=== PATIENT | female | born 1980 | race American Indian/Alaskan Native ===

== ENCOUNTER 2018-05-29 14:29 | Emergency (ER) | payer SELFPAY ==
[2018-05-29 14:56] VITALS: BP 151/83
== END 2018-05-29 19:25 | disposition left against medical advice (07) ==
LOC: ED 14:29
DX: R10.9 Unspecified abdominal pain (principal); Z53.21 Procedure and treatment not carried out due to patient leaving prior to being seen by health care provider

== ENCOUNTER 2018-09-21 12:27 | Emergency (ER) | payer SELFPAY ==
[2018-09-21] MEDS ORDERED: CATAPRES ONE (13:23)
[2018-09-21] MEDS ORDERED: CATAPRES PO ONE (13:24)
[2018-09-21 13:29] LABS: Amorphous Crystals,Urine Few; Bilirubin,Urine NEG (Negative); Blood,Urine NEG (Negative); Color,Urine Yellow (Yellow); Protein,Urine <15 mg/dL mg/dL (Negative); Urobilinogen,Urine < 2.0 mg/dL (<2.0)
[2018-09-21 13:33] LABS: HCG Qualitative,Urine Negative (Negative)
--- NOTE | 2018-09-21 13:36 | Emergency Department Report ---
HPI - General Chief Complaint: Abdominal Pain Time Seen by Provider: 09/21/18 13:20 - HPI HPI: This is a 38-year-old female presents to ED with a history of hypertension poorly controlled with medication. Patient states presents today complaining of lower flank pain 2 days. Patient states she has been having intermittent flank pain for the past 2 days. Patient denies fevers/chills/nausea vomiting chest chest pains or shortness of breath/dysuria/vaginal bleed pelvic pain. ED Past Medical Hx - Past Medical History Hx Hypertension: Yes - Surgical History Past Surgical History?: No - Social History Smoking Status: Current Every Day Smoker - Medications Home Medications: Home Medications Medication Instructions Recorded Confirmed Last Taken Type Ibuprofen [Motrin] 800 mg PO Q8HR #30 tablet 09/21/18 Unknown Rx Lisinopril [Zestril TAB] 20 mg PO QDAY #40 tablet 09/21/18 Unknown Rx Nitrofurantoin [place]/M-Cryst 100 mg PO Q12HR #10 capsule 09/21/18 Unknown Rx [Macrobid CAP] ED Review of Systems ROS: Stated complaint: BACK/ABD PAIN/VOMITING/HEADACHE Other details as noted in HPI Comment: All other systems reviewed and negative Physical Exam - Physical Exam Vital Signs: Vital Signs 09/21/18 09/21/18 12:43 13:25 Temperature 98.5 F Pulse Rate 81 Blood Pressure 198/111 174/114 O2 Sat by Pulse 96 Oximetry Physical Exam: GENERAL: Alert and oriented x3, no apparent distress, Normal Gait, atraumatic. HEAD: Head is normocephalic and a-traumatic. NECK: Supple. Non edematous, No carotid bruits. No lymphadenopathy or thyromegaly. No C-spine tenderness LUNGS: Symetrical with respiration, No wheezing, no rales or crackles, CTAB. HEART: S1, S2 present, regular rate and rhythm without murmur, no rubs, no gallops. Non tender to palpation ABDOMEN: No organomegaly was noted,Positive bowel sounds, soft, and non- distended. . Nontender to palpation on all Quadrants, NO CVA tenderness. BACK: Full range of motion, no spinal tenderness, nontender to palpation. SKIN: Warm and dry, No lesions, No ulceration or induration present. ED Course Vital Signs 09/21/18 09/21/18 12:43 13:25 Temperature 98.5 F Pulse Rate 81 Blood Pressure 198/111 174/114 O2 Sat by Pulse 96 Oximetry ED Medical Decision Making - Medical Decision Making All patient presents with mild cystitis Blood pressure was elevated in the ED, patient has not had a blood pressure medication for couple months. Discussed the patient will refill her lisinopril medication. Urinalysis positive for white count and leukocyte esterase. History patient with 3 day short course of antibiotic therapy Vital signs are normal patient is no acute distress Discussed the patient to follow up with the primary care physician as referred for blood pressure management. Clonidine 0.1 given to reduce blood pressure. Patient was asymptomatic in the ED Critical care attestation.: If time is entered above; I have spent that time in minutes in the direct care of this critically ill patient, excluding procedure time. ED Disposition Clinical Impression: Uncontrolled hypertension, Cystitis Disposition: DC-01 TO HOME OR SELFCARE Is pt being admited?: No Does the pt Need Aspirin: No Condition: Stable Instructions: Urinary Tract Infection in Women (ED), Abdominal Pain (ED), Hypertension (ED), Flank Pain (ED) Additional Instructions: Make sure to follow up with the primary care physician as discussed. Take all your medications as you've been prescribed. If you have any worsening symptoms or develop new symptoms please return to ED immediately. Prescriptions: Ibuprofen [Motrin] 800 mg PO Q8HR #30 tablet Lisinopril [Zestril TAB] 20 mg PO QDAY #40 tablet Nitrofurantoin [place]/M-Cryst [Macrobid CAP] 100 mg PO Q12HR #10 capsule Referrals: MALCOM BARBA MD [Primary Care Provider] - 3-5 Days ENOC FOURNIER MD [Referring] - 3-5 Days [facility] [Outside] - 3-5 Days [facility] [Outside] - 3-5 Days Forms: Work/School Release Form(ED) Time of Disposition: 13:48
[2018-09-21 13:53] VITALS: BP 151/103
== END 2018-09-21 14:01 | disposition home or self-care (01) ==
LOC: ED 12:27
DX: N30.90 Cystitis, unspecified without hematuria (principal); I10 Essential (primary) hypertension; F17.200 Nicotine dependence, unspecified, uncomplicated
CPT/HCPCS: 81001; 81025; 99283

== ENCOUNTER 2018-12-11 18:10 | Emergency (ER) | payer OTHER ==
--- NOTE | 2018-12-11 18:52 | Emergency Department Report ---
Chief Complaint: Headache Stated Complaint: HEADACHE AND SINUSES Time Seen by Provider: 12/11/18 18:50 - HPI History of Present Illness: pt presents with a frontal BAUGH that began two days ago sinus pressure (+) rhinorrhea (+) sneezing (+) allergies no fever has not taken anything for her sx PMHx of HTN takes lisinopril MSE screening note: Focused history and physical exam performed. ED Disposition for MSE Condition: Stable
[2018-12-11 18:53] VITALS: BP 139/85
[2018-12-11] MEDS ORDERED: DECADRON IM ONE (21:13)
[2018-12-11] MEDS ORDERED: TYLENOL PO ONE (21:14)
[2018-12-11] MEDS ORDERED: REGLAN PO ONE (21:14)
[2018-12-11] MEDS ORDERED: BENADRYL PO ONE (21:14)
--- NOTE | 2018-12-11 22:15 | Emergency Department Report ---
ED Headache HPI - General Chief Complaint: Headache Stated Complaint: HEADACHE AND SINUSES Time Seen by Provider: 12/11/18 18:50 - History of Present Illness Initial Comments: pt presents with a frontal BAUGH that began two days ago sinus pressure (+) rhinorrhea (+) sneezing (+) allergies no fever has not taken anything for her sx PMHx of HTN takes lisinopril Timing/Duration: other (3 days ) Quality: moderate Head Injury Location: frontal, other (is reasonable) Associated Symptoms: fever/chills, nasal congestion, nasal drainage (06 with visit with [facility]) Allergies/Adverse Reactions: Allergies No Known Allergies Allergy (Verified 09/21/18 13:23) Home Medications: Ambulatory Orders Ibuprofen [Motrin] 800 mg PO Q8HR #30 tablet 09/21/18 Lisinopril [Zestril TAB] 20 mg PO QDAY #40 tablet 09/21/18 Nitrofurantoin [place]/M-Cryst [Macrobid CAP] 100 mg PO Q12HR #10 capsule 09/21/18 Acetaminophen [Tylenol Extra Strength] 1,000 mg PO QID PRN #30 tablet 12/11/18 Metoclopramide [Reglan] 10 mg PO Q6H PRN #30 tablet 12/11/18 diphenhydrAMINE [Benadryl CAP] 25 mg PO Q6HR PRN #30 capsule 12/11/18 predniSONE [Deltasone] 40 mg PO QDAY 5 Days #10 tab 12/11/18 ED Review of Systems ROS: Stated complaint: HEADACHE AND SINUSES Other details as noted in HPI Constitutional: denies: chills, fever Eyes: denies: eye pain, eye discharge, vision change ENT: ear pain, throat pain (O with probableData available), congestion Respiratory: denies: cough, shortness of breath, wheezing Cardiovascular: denies: chest pain, palpitations Endocrine: no symptoms reported Gastrointestinal: denies: abdominal pain, nausea, diarrhea Genitourinary: denies: urgency, dysuria, discharge Musculoskeletal: as per HPI. denies: back pain, joint swelling, arthralgia Skin: denies: rash, lesions Neurological: denies: headache, weakness, paresthesias Psychiatric: as per HPI. denies: anxiety, depression Hematological/Lymphatic: denies: easy bleeding, easy bruising ED Past Medical Hx - Past Medical History Hx Hypertension: Yes - Social History Smoking Status: Never Smoker Substance Use Type: None - Medications Home Medications: Home Medications Medication Instructions Recorded Confirmed Last Taken Type Ibuprofen [Motrin] 800 mg PO Q8HR #30 tablet 09/21/18 Unknown Rx Lisinopril [Zestril TAB] 20 mg PO QDAY #40 tablet 09/21/18 Unknown Rx Nitrofurantoin [place]/M-Cryst 100 mg PO Q12HR #10 capsule 09/21/18 Unknown Rx [Macrobid CAP] Acetaminophen [Tylenol Extra 1,000 mg PO QID PRN #30 tablet 12/11/18 Unknown Rx Strength] Metoclopramide [Reglan] 10 mg PO Q6H PRN #30 tablet 12/11/18 Unknown Rx diphenhydrAMINE [Benadryl CAP] 25 mg PO Q6HR PRN #30 capsule 12/11/18 Unknown Rx predniSONE [Deltasone] 40 mg PO QDAY 5 Days #10 tab 12/11/18 Unknown Rx ED Physical Exam - General Limitations: No Limitations ( for) General appearance: alert, in no apparent distress - Head Head exam: Present: atraumatic, normocephalic - Eye Eye exam: Present: normal appearance, PERRL, EOMI Pupils: Present: normal accommodation - ENT ENT exam: Present: mucous membranes moist, other (bialt maxillary sinus pain to palpation no swelling no erythema nares boggy clear post nasal drip ) - Expanded ENT Exam Expanded Ear exam: Present: normal external inspection TM/Canal exam: Erythema: Left TM, Canal Tenderness: Left TM, Right TM Mouth exam: Absent: trismus (I) Throat exam: Positive: normal inspection, other (uvula midine no stridor no exudate no lesions ) - Neck Neck exam: Present: normal inspection - Respiratory Respiratory exam: Present: normal lung sounds bilaterally (O). Absent: respiratory distress, wheezes, stridor, chest wall tenderness (ON) - Cardiovascular Cardiovascular Exam: Present: regular rate, normal rhythm, normal heart sounds. Absent: systolic murmur, diastolic murmur, rubs, gallop - GI/Abdominal GI/Abdominal exam: Present: soft, normal bowel sounds. Absent: tenderness, rebound, bruit, hernia - Rectal Rectal exam: Present: deferred (the) - Extremities Exam Extremities exam: Present: normal inspection, full ROM, normal capillary refill. Absent: tenderness, joint swelling, calf tenderness - Back Exam Back exam: Present: normal inspection, full ROM (on the). Absent: tenderness, CVA tenderness (R), CVA tenderness (L) (1), rash noted (.) - Neurological Exam Neurological exam: Present: alert, oriented X3, CN II-XII intact, normal gait, reflexes normal - Psychiatric Psychiatric exam: Present: normal affect (I), normal mood - Skin Skin exam: Present: warm, dry, intact, normal color. Absent: rash ED Course Vital Signs 12/11/18 12/11/18 18:51 21:45 Temperature 98.6 F Pulse Rate 88 Respiratory 18 18 Rate Blood Pressure 139/85 O2 Sat by Pulse 100 Oximetry ED Medical Decision Making - Medical Decision Making pain is improved plan tx for sinusitis , sinus headache, tylenol, benadryl, reglan, prednisone, augmentin follow up with pcp in 2-3 days pt verbalized agreement and understanding of discharge plan. Critical care attestation.: If time is entered above; I have spent that time in minutes in the direct care of this critically ill patient, excluding procedure time. ED Disposition Clinical Impression: Sinusitis Qualifiers: Sinusitis location: maxillary Chronicity: acute Recurrence: non-recurrent Qualified Code(s): J01.00 - Acute maxillary sinusitis, unspecified URI (upper respiratory infection) Qualifiers: URI type: unspecified viral URI Qualified Code(s): J06.9 - Acute upper respiratory infection, unspecified Headache Qualifiers: Headache type: unspecified Headache chronicity pattern: acute headache Intractability: not intractable Qualified Code(s): R51 - Headache Disposition: DC-01 TO HOME OR SELFCARE Is pt being admited?: No Does the pt Need Aspirin: No Condition: Stable Instructions: Sinusitis (ED), Acute Headache (ED) Prescriptions: diphenhydrAMINE [Benadryl CAP] 25 mg PO Q6HR PRN #30 capsule PRN Reason: Headache predniSONE [Deltasone] 40 mg PO QDAY 5 Days #10 tab Metoclopramide [Reglan] 10 mg PO Q6H PRN #30 tablet PRN Reason: Headache Acetaminophen [Tylenol Extra Strength] 1,000 mg PO QID PRN #30 tablet PRN Reason: Headache Referrals: [facility] [Outside] - 3-5 Days Forms: Work/School Release Form(ED) Time of Disposition: 22:36
== END 2018-12-11 22:45 | disposition home or self-care (01) ==
LOC: ED 18:10
DX: J01.00 Acute maxillary sinusitis, unspecified (principal); I10 Essential (primary) hypertension
CPT/HCPCS: 96372; 99282; J1100

== ENCOUNTER 2019-06-10 21:00 | Emergency (ER) | payer SELFPAY ==
[2019-06-10 21:32] VITALS: BP 159/93
--- NOTE | 2019-06-10 21:32 | Event Note ---
ED Screening Note Date of service: 06/10/19 Time: 21:27 ED Screening Note: 38 y o f presents unbilical abd pain x today This initial assessment/diagnostic orders/clinical plan/treatment(s) is/are subject to change based on patients health status, clinical progression and re- assessment by fellow clinical providers in the ED. Further treatment and workup at subsequent clinical providers discretion. Patient/guardian urged not to elope from the ED as their condition may be serious if not clinically assessed and managed. Initial orders include: labs ua acc eval ct?
[2019-06-10 21:50] LABS: Basophils # (Auto) 0.1 K/mm3 (0.0-0.1); Basophils % (Auto) 1.4 % (0.0-1.8); Eosinophils # (Auto) 0.2 K/mm3 (0.0-0.4); Eosinophils % (Auto) 1.9 % (0.0-4.3); Hematocrit 42.8 % (30.3-42.9); Hemoglobin 14.3 gm/dl (10.1-14.3); Lymphocytes # (Auto) 2.9 K/mm3 (1.2-5.4); Mean Corpuscular HGB Conc 33 % (30-34); Mean Corpuscular Volume 95 fl (79-97); Monocytes # (Auto) 0.7 K/mm3 (0.0-0.8); Platelet Count 268 K/mm3 (140-440); Red Cell Distribution Width 14.4 % (13.2-15.2)
[2019-06-10 22:03] LABS: INR 0.95 (0.87-1.13)
[2019-06-10 22:05] LABS: Bilirubin,Urine NEG (Negative); Blood,Urine NEG (Negative); Color,Urine Yellow (Yellow); Mucus,Urine FEW /HPF; Protein,Urine <15 mg/dL mg/dL (Negative); Urobilinogen,Urine < 2.0 mg/dL (<2.0)
[2019-06-10 22:12] LABS: Alanine Aminotransferase 18 units/L (7-56); Albumin 4.3 g/dL (3.9-5); BUN/Creatinine Ratio 11; Blood Urea Nitrogen 8 mg/dL (7-17); Calcium 9.6 mg/dL (8.4-10.2); Hemolysis Index 4
[2019-06-10 22:13] LABS: Bilirubin,Direct < 0.2 mg/dL (0-0.2)
--- NOTE | 2019-06-10 23:02 | Emergency Department Report ---
ED General Adult HPI - General Chief complaint: Abdominal Pain Stated complaint: STOMACH/BACK PAIN Time Seen by Provider: 06/10/19 21:27 Source: patient Mode of arrival: Ambulatory Limitations: No Limitations - History of Present Illness Initial comments: Patient presents to the emergency department a chief complaint of right flank pain that started approximately 5 days ago and is nonradiating. Patient also complains of dysuria. Of note the patient is concerned about some pain at her belly button that has been present for months. Patient denies any nausea, vomiting, vaginal bleeding or discharge. -: Gradual Location: abdomen Radiation: non-radiation Severity scale (0 -10): 2 Consistency: constant Improves with: none Worsens with: none Associated Symptoms: denies other symptoms Treatments Prior to Arrival: none - Related Data Previous Rx's Medication Instructions Recorded Last Taken Type Ibuprofen [Motrin] 800 mg PO Q8HR #30 tablet 09/21/18 Unknown Rx Lisinopril [Zestril TAB] 20 mg PO QDAY #40 tablet 09/21/18 Unknown Rx Nitrofurantoin [place]/M-Cryst 100 mg PO Q12HR #10 capsule 09/21/18 Unknown Rx [Macrobid CAP] Acetaminophen [Tylenol Extra 1,000 mg PO QID PRN #30 tablet 12/11/18 Unknown Rx Strength] Metoclopramide [Reglan] 10 mg PO Q6H PRN #30 tablet 12/11/18 Unknown Rx diphenhydrAMINE [Benadryl CAP] 25 mg PO Q6HR PRN #30 capsule 12/11/18 Unknown Rx predniSONE [Deltasone] 40 mg PO QDAY 5 Days #10 tab 12/11/18 Unknown Rx Naproxen [Naprosyn] 500 mg PO BID PRN #20 tablet 06/10/19 Unknown Rx cephALEXin [Keflex] 500 mg PO Q6HR #28 capsule 06/10/19 Unknown Rx Allergies Allergy/AdvReac Type Severity Reaction Status Date / Time latex Allergy Itching Verified 06/10/19 21:04 ED Review of Systems ROS: Stated complaint: STOMACH/BACK PAIN Other details as noted in HPI Comment: All other systems reviewed and negative Constitutional: denies: chills, fever Eyes: denies: eye pain, eye discharge, vision change ENT: denies: ear pain, throat pain Respiratory: denies: cough, shortness of breath, wheezing Cardiovascular: denies: chest pain, palpitations Endocrine: no symptoms reported Gastrointestinal: abdominal pain. denies: nausea, diarrhea Genitourinary: denies: urgency, dysuria, discharge Musculoskeletal: denies: back pain, joint swelling, arthralgia Skin: denies: rash, lesions Neurological: denies: headache, weakness, paresthesias Psychiatric: denies: anxiety, depression Hematological/Lymphatic: denies: easy bleeding, easy bruising ED Past Medical Hx - Past Medical History Previous Medical History?: No Hx Hypertension: Yes - Surgical History Past Surgical History?: Yes Additional Surgical History: c-sec - Social History Smoking Status: Current Every Day Smoker Substance Use Type: None - Medications Home Medications: Home Medications Medication Instructions Recorded Confirmed Last Taken Type Ibuprofen [Motrin] 800 mg PO Q8HR #30 tablet 09/21/18 Unknown Rx Lisinopril [Zestril TAB] 20 mg PO QDAY #40 tablet 09/21/18 Unknown Rx Nitrofurantoin [place]/M-Cryst 100 mg PO Q12HR #10 capsule 09/21/18 Unknown Rx [Macrobid CAP] Acetaminophen [Tylenol Extra 1,000 mg PO QID PRN #30 tablet 12/11/18 Unknown Rx Strength] Metoclopramide [Reglan] 10 mg PO Q6H PRN #30 tablet 12/11/18 Unknown Rx diphenhydrAMINE [Benadryl CAP] 25 mg PO Q6HR PRN #30 capsule 12/11/18 Unknown Rx predniSONE [Deltasone] 40 mg PO QDAY 5 Days #10 tab 12/11/18 Unknown Rx Naproxen [Naprosyn] 500 mg PO BID PRN #20 tablet 06/10/19 Unknown Rx cephALEXin [Keflex] 500 mg PO Q6HR #28 capsule 06/10/19 Unknown Rx ED Physical Exam - General Limitations: No Limitations General appearance: alert, in no apparent distress - Head Head exam: Present: atraumatic, normocephalic - Eye Eye exam: Present: normal appearance, PERRL, EOMI - ENT ENT exam: Present: mucous membranes moist - Neck Neck exam: Present: normal inspection - Respiratory Respiratory exam: Present: normal lung sounds bilaterally. Absent: respiratory distress - Cardiovascular Cardiovascular Exam: Present: regular rate, normal rhythm. Absent: systolic murmur, diastolic murmur, rubs, gallop - GI/Abdominal GI/Abdominal exam: Present: soft, tenderness (there is a periumbilical hernia the right side of the umbilicus that is easily reducible nonincarcerated), normal bowel sounds. Absent: distended - Extremities Exam Extremities exam: Present: normal inspection - Back Exam Back exam: Present: normal inspection - Neurological Exam Neurological exam: Present: alert, oriented X3 - Psychiatric Psychiatric exam: Present: normal affect, normal mood - Skin Skin exam: Present: warm, dry, intact, normal color. Absent: rash ED Course Vital Signs 06/10/19 21:25 Temperature 98.3 F Pulse Rate 82 Respiratory 18 Rate Blood Pressure 159/93 O2 Sat by Pulse 97 Oximetry ED Medical Decision Making - Lab Data Result diagrams: 06/10/19 21:37 06/10/19 21:37 Lab Results 06/10/19 06/10/19 06/10/19 Range/Units 21:37 21:37 21:37 WBC 9.5 (4.5-11.0) K/mm3 RBC 4.50 (3.65-5.03) M/mm3 Hgb 14.3 (10.1-14.3) gm/dl Hct 42.8 (30.3-42.9) % MCV 95 (79-97) fl MCH 32 (28-32) pg MCHC 33 (30-34) % RDW 14.4 (13.2-15.2) % Plt Count 268 (140-440) K/mm3 Lymph % (Auto) 31.0 (13.4-35.0) % [place] % (Auto) 7.0 (0.0-7.3) % Eos % (Auto) 1.9 (0.0-4.3) % Baso % (Auto) 1.4 (0.0-1.8) % Lymph # 2.9 (1.2-5.4) K/mm3 [place] # 0.7 (0.0-0.8) K/mm3 Eos # 0.2 (0.0-0.4) K/mm3 Baso # 0.1 (0.0-0.1) K/mm3 Seg Neutrophils % 58.7 (40.0-70.0) % Seg Neutrophils # 5.6 (1.8-7.7) K/mm3 PT 12.4 (12.2-14.9) Sec. INR 0.95 (0.87-1.13) Sodium 141 (137-145) mmol/L Potassium 4.3 (3.6-5.0) mmol/L Chloride 99.4 (98-107) mmol/L Carbon Dioxide 29 (22-30) mmol/L Anion Gap 17 mmol/L BUN 8 (7-17) mg/dL Creatinine 0.7 (0.7-1.2) mg/dL Estimated GFR > 60 ml/min BUN/Creatinine Ratio 11 % Glucose 102 H (65-100) mg/dL Calcium 9.6 (8.4-10.2) mg/dL Total Bilirubin 0.40 (0.1-1.2) mg/dL Direct Bilirubin < 0.2 (0-0.2) mg/dL Indirect Bilirubin 0.2 mg/dL AST 16 (5-40) units/L ALT 18 (7-56) units/L Alkaline Phosphatase 48 (35-129) units/L Total Protein 7.2 (6.3-8.2) g/dL Albumin 4.3 (3.9-5) g/dL Albumin/Globulin Ratio 1.5 % Lipase 63 H (13-60) units/L Urine Color (Yellow) Urine Turbidity (Clear) Urine pH (5.0-7.0) Ur Specific [place] (1.003-1.030) Urine Protein (Negative) mg/dL Urine Glucose (UA) (Negative) mg/dL Urine Ketones (Negative) mg/dL Urine Blood (Negative) Urine Nitrite (Negative) Urine Bilirubin (Negative) Urine Urobilinogen (<2.0) mg/dL Ur Leukocyte Esterase (Negative) Urine WBC (Auto) (0.0-6.0) /HPF Urine RBC (Auto) (0.0-6.0) /HPF U Epithel Cells (Auto) (0-13.0) /HPF Urine Mucus /HPF 06/10/19 Range/Units 21:51 WBC (4.5-11.0) K/mm3 RBC (3.65-5.03) M/mm3 Hgb (10.1-14.3) gm/dl Hct (30.3-42.9) % MCV (79-97) fl MCH (28-32) pg MCHC (30-34) % RDW (13.2-15.2) % Plt Count (140-440) K/mm3 Lymph % (Auto) (13.4-35.0) % [place] % (Auto) (0.0-7.3) % Eos % (Auto) (0.0-4.3) % Baso % (Auto) (0.0-1.8) % Lymph # (1.2-5.4) K/mm3 [place] # (0.0-0.8) K/mm3 Eos # (0.0-0.4) K/mm3 Baso # (0.0-0.1) K/mm3 Seg Neutrophils % (40.0-70.0) % Seg Neutrophils # (1.8-7.7) K/mm3 PT (12.2-14.9) Sec. INR (0.87-1.13) Sodium (137-145) mmol/L Potassium (3.6-5.0) mmol/L Chloride (98-107) mmol/L Carbon Dioxide (22-30) mmol/L Anion Gap mmol/L BUN (7-17) mg/dL Creatinine (0.7-1.2) mg/dL Estimated GFR ml/min BUN/Creatinine Ratio % Glucose (65-100) mg/dL Calcium (8.4-10.2) mg/dL Total Bilirubin (0.1-1.2) mg/dL Direct Bilirubin (0-0.2) mg/dL Indirect Bilirubin mg/dL AST (5-40) units/L ALT (7-56) units/L Alkaline Phosphatase (35-129) units/L Total Protein (6.3-8.2) g/dL Albumin (3.9-5) g/dL Albumin/Globulin Ratio % Lipase (13-60) units/L Urine Color Yellow (Yellow) Urine Turbidity Slightly-cloudy (Clear) Urine pH 5.0 (5.0-7.0) Ur Specific [place] 1.018 (1.003-1.030) Urine Protein <15 mg/dl (Negative) mg/dL Urine Glucose (UA) Neg (Negative) mg/dL Urine Ketones Neg (Negative) mg/dL Urine Blood Neg (Negative) Urine Nitrite Neg (Negative) Urine Bilirubin Neg (Negative) Urine Urobilinogen < 2.0 (<2.0) mg/dL Ur Leukocyte Esterase Sm (Negative) Urine WBC (Auto) 20.0 H (0.0-6.0) /HPF Urine RBC (Auto) 3.0 (0.0-6.0) /HPF U Epithel Cells (Auto) 5.0 (0-13.0) /HPF Urine Mucus Few /HPF - Medical Decision Making Discussed results with patient A shunt platelet declined to provide a urinalysis for stating that she's not Critical care attestation.: If time is entered above; I have spent that time in minutes in the direct care of this critically ill patient, excluding procedure time. ED Disposition Clinical Impression: UTI (urinary tract infection), Hernia Disposition: TO HOME OR SELFCARE Is pt being admited?: No Does the pt Need Aspirin: No Condition: Stable Instructions: Urinary Tract Infection in Women (ED), Ventral Hernia (ED) Additional Instructions: return if worse Prescriptions: cephALEXin [Keflex] 500 mg PO Q6HR #28 capsule Referrals: PRIMARY CARE, [Primary Care Provider] - 3-5 Days [facility] [Provider Group] - 3-5 Days [facility] [Provider Group] - 3-5 Days Time of Disposition: 23:01
== END 2019-06-11 07:32 | disposition home or self-care (01) ==
LOC: ED 21:00
DX: N39.0 Urinary tract infection, site not specified (principal); K46.9 Unspecified abdominal hernia without obstruction or gangrene; Z91.041 Radiographic dye allergy status
CPT/HCPCS: 36415; 80048; 80076; 81001; 83690; 85025; 85610; 87086

== ENCOUNTER 2019-07-18 20:57 | Emergency (ER) | payer SELFPAY ==
[2019-07-18 21:04] VITALS: BP 140/80
--- NOTE | 2019-07-18 23:18 | XRay Report ---
LEFT KNEE, 3 VIEWS INDICATION / CLINICAL INFORMATION: MAIN: pain LLE and Left knee pain X 1 week. COMPARISON: None available. FINDINGS: Mild degenerative changes are present in the left knee, predominantly in the medial joint compartment . No fracture, dislocation, or suprapatellar joint effusion is appreciated. IMPRESSION: Mild degenerative change. Signer Name: Lorena Amaya MD Signed: 07/18/2019 11:13 PM Workstation Name: [id number]
[2019-07-19] MEDS ORDERED: traMADol 50 MG TAB PO ONE (00:12)
--- NOTE | 2019-07-19 00:16 | Emergency Department Report ---
ED Lower Extremity HPI - General Chief Complaint: Extremity Injury, Lower Stated Complaint: PAIN IN LT LEG AND KNEE Time Seen by Provider: 07/18/19 23:29 Source: patient Mode of arrival: Ambulatory Limitations: No Limitations - History of Present Illness Initial Comments: Ms Evangelista is a 38 y/o aaf with hx of obesity and chronic knee and leg pain ,who presents for knee pain flare for past week. Pt denies fall injury or trauma. pain is 5/10 aching exacerbated by prolonged weight bearing. Pain is relieved by off loading and rest. Pt states pain preventing completion of work duties as it requires standing and walking for 8 or more hrs 6 days per week. MD Complaint: knee injury Onset/Timin -: week(s), unknown (chronic ) Injury: Knee: Left (left anterior knee pain ) Type of Injury: unknown Place: home Severity: moderate Severity scale (0 -10): 4 Improves With: immobilization, rest Worsens With: weight bearing, palpation Associated Symptoms: ambulatory. denies: snap/pop sensation, swelling, numbness, tingling - Related Data Previous Rx's Medication Instructions Recorded Last Taken Type Ibuprofen [Motrin] 800 mg PO Q8HR #30 tablet 09/21/18 Unknown Rx Lisinopril [Zestril TAB] 20 mg PO QDAY #40 tablet 09/21/18 Unknown Rx Nitrofurantoin [place]/M-Cryst 100 mg PO Q12HR #10 capsule 09/21/18 Unknown Rx [Macrobid CAP] Acetaminophen [Tylenol Extra 1,000 mg PO QID PRN #30 tablet 12/11/18 Unknown Rx Strength] Metoclopramide [Reglan] 10 mg PO Q6H PRN #30 tablet 12/11/18 Unknown Rx diphenhydrAMINE [Benadryl CAP] 25 mg PO Q6HR PRN #30 capsule 12/11/18 Unknown Rx predniSONE [Deltasone] 40 mg PO QDAY 5 Days #10 tab 12/11/18 Unknown Rx Naproxen [Naprosyn] 500 mg PO BID PRN #20 tablet 06/10/19 Unknown Rx cephALEXin [Keflex] 500 mg PO Q6HR #28 capsule 06/10/19 Unknown Rx Menthol/Camphor [[place] Draper 1 applicatio TP QID PRN #1 tube 07/19/19 Unknown Rx Ointment] Naproxen 500 mg PO BID PRN #30 tablet 07/19/19 Unknown Rx Allergies Allergy/AdvReac Type Severity Reaction Status Date / Time latex Allergy Itching Verified 06/10/19 21:04 ED Review of Systems ROS: Stated complaint: PAIN IN LT LEG AND KNEE Other details as noted in HPI Constitutional: denies: chills, fever Eyes: denies: eye pain, eye discharge, vision change ENT: denies: ear pain, throat pain Respiratory: denies: cough, shortness of breath, wheezing Cardiovascular: denies: chest pain, palpitations Endocrine: no symptoms reported Gastrointestinal: denies: abdominal pain, nausea, diarrhea Genitourinary: denies: urgency, dysuria, discharge Musculoskeletal: arthralgia, other (knee pain ). denies: back pain, joint swelling Skin: denies: rash, lesions Neurological: denies: headache, weakness, paresthesias Psychiatric: denies: anxiety, depression Hematological/Lymphatic: denies: easy bleeding, easy bruising ED Past Medical Hx - Past Medical History Hx Hypertension: Yes - Surgical History Additional Surgical History: c-sec - Social History Smoking Status: Never Smoker Substance Use Type: None - Medications Home Medications: Home Medications Medication Instructions Recorded Confirmed Last Taken Type Ibuprofen [Motrin] 800 mg PO Q8HR #30 tablet 09/21/18 Unknown Rx Lisinopril [Zestril TAB] 20 mg PO QDAY #40 tablet 09/21/18 Unknown Rx Nitrofurantoin [place]/M-Cryst 100 mg PO Q12HR #10 capsule 09/21/18 Unknown Rx [Macrobid CAP] Acetaminophen [Tylenol Extra 1,000 mg PO QID PRN #30 tablet 12/11/18 Unknown Rx Strength] Metoclopramide [Reglan] 10 mg PO Q6H PRN #30 tablet 12/11/18 Unknown Rx diphenhydrAMINE [Benadryl CAP] 25 mg PO Q6HR PRN #30 capsule 12/11/18 Unknown Rx predniSONE [Deltasone] 40 mg PO QDAY 5 Days #10 tab 12/11/18 Unknown Rx Naproxen [Naprosyn] 500 mg PO BID PRN #20 tablet 06/10/19 Unknown Rx cephALEXin [Keflex] 500 mg PO Q6HR #28 capsule 06/10/19 Unknown Rx Menthol/Camphor [[place]per 1 applicatio TP QID PRN #1 tube 07/19/19 Unknown Rx Ointment] Naproxen 500 mg PO BID PRN #30 tablet 07/19/19 Unknown Rx ED Physical Exam - General Limitations: No Limitations General appearance: alert, in no apparent distress - Head Head exam: Present: atraumatic, normocephalic - Eye Eye exam: Present: normal appearance - ENT ENT exam: Present: mucous membranes moist - Neck Neck exam: Present: normal inspection - Respiratory Respiratory exam: Present: normal lung sounds bilaterally. Absent: respiratory distress, wheezes, stridor, chest wall tenderness - Cardiovascular Cardiovascular Exam: Present: regular rate, normal rhythm, normal heart sounds. Absent: systolic murmur, diastolic murmur, rubs, gallop - GI/Abdominal GI/Abdominal exam: Present: soft, normal bowel sounds - Rectal Rectal exam: Present: deferred - Extremities Exam Extremities exam: Present: full ROM, tenderness (left anterior medial knee pain to palpation ), normal capillary refill. Absent: pedal edema, joint swelling, calf tenderness - Expanded Lower Extremity Exam Left Knee exam: Present: full ROM, tenderness, pain w/ pronation/supination, full knee extension. Absent: laceration, ecchymosis, deformity, crepidus, dislocation, erythema, effusion, posterior draw sign, pain/laxity with valgus, pain/laxity with varus Lower Leg exam: Present: full ROM. Absent: tenderness Ankle exam: Present: full ROM. Absent: tenderness Foot/Toe exam: Present: full ROM. Absent: tenderness Neuro vascular tendon exam: Absent: pulse deficit, motor deficit, sensory deficit, tendon deficit Gait: Positive: observed and normal - Back Exam Back exam: Present: normal inspection, full ROM. Absent: tenderness, vertebral tenderness, rash noted - Neurological Exam Neurological exam: Present: alert, oriented X3, CN II-XII intact, normal gait, reflexes normal. Absent: motor sensory deficit - Expanded Neurological Exam Expanded Patient oriented to: Present: person, place, time Speech: Present: fluid speech Cranial nerves: EOM's Intact: Normal, Gag Reflex: Normal, Tongue Deviation: Normal, Nystagmus: Normal, Facial Sensation: Normal Motor strength exam: RUE: 5, LUE: 5, RLE: 5, LLE: 5 DTR: knee (R): 2+, knee (L): 2+ Best Eye Response (Celia): (4) open spontaneously Best Motor Response (Celia): (6) obeys commands Best Verbal Response ([place]): (5) oriented [place] Total: 15 - Psychiatric Psychiatric exam: Present: normal affect, normal mood - Skin Skin exam: Present: warm, dry, intact, normal color. Absent: rash ED Course Vital Signs 07/18/19 21:03 Temperature 97.8 F Pulse Rate 76 Respiratory 20 Rate Blood Pressure 140/80 O2 Sat by Pulse 97 Oximetry ED Lower Extremity MDM - Radiology Data Radiology results: report reviewed, image reviewed Ordering Physician: VIJAY CROUCH MD Date of Service: 07/18/19 Procedure(s): XR knee 1-2V LT Accession Number(s): [id number] cc: ED MD MIKO Fluoro Time In Minutes: LEFT KNEE, 3 VIEWS INDICATION / CLINICAL INFORMATION: MAIN: pain LLE and Left knee pain X 1 week. COMPARISON: None available. FINDINGS: Mild degenerative changes are present in the left knee, predominantly in the medial joint compartment. No fracture, dislocation, or suprapatellar joint effusion is appreciated. IMPRESSION: Mild degenerative change. Signer Name: Lorena Amaya MD Signed: 07/18/2019 11:13 PM Workstation Name: [id number] Transcribed By: JR Dictated By: Lorena Amaya MD Electronically Authenticated By: Lorena Amaya MD Signed Date/Time: 07/18/192312 DD/ 11 TD/TT: - Medical Decision Making xray :neg for fracature, noted degenerative changes. Joint is stabel, This is musculoskeletal knee pain, plan: nsaids, analgesic balm, ricer therapy. pt verbalized agreement and understanding of same. Critical care attestation.: If time is entered above; I have spent that time in minutes in the direct care of this critically ill patient, excluding procedure time. ED Disposition Clinical Impression: Knee strain Qualifiers: Encounter type: initial encounter Laterality: left Qualified Code(s): S86.912A - Strain of unspecified muscle(s) and tendon(s) at lower leg level, left leg, initial encounter Disposition: - TO HOME OR SELFCARE Is pt being admited?: No Does the pt Need Aspirin: No Condition: Stable Instructions: Knee Pain (ED), Arthralgia (ED), Knee Exercises (GEN) Prescriptions: Naproxen 500 mg PO BID PRN #30 tablet PRN Reason: pain Menthol/Camphor [[place] Draper Ointment] 1 applicatio TP QID PRN #1 tube PRN Reason: Pain , Severe (7-10) [facility] Care [facility] - 3-5 Days BECKY HUANG MD [Staff Physician] - 3-5 Days Forms: Work/School Release Form(ED) Time of Disposition: 00:26
== END 2019-07-19 00:30 | disposition home or self-care (01) ==
LOC: ED 20:57
DX: S86.912A Strain of unspecified muscle(s) and tendon(s) at lower leg level, left leg, initial encounter (principal); I10 Essential (primary) hypertension; Z79.899 Other long term (current) drug therapy; Z91.040 Latex allergy status; X58.XXXA Exposure to other specified factors, initial encounter; Y93.89 Activity, other specified; Y92.89 Other specified places as the place of occurrence of the external cause; Y99.8 Other external cause status

== ENCOUNTER 2019-08-01 17:54 | Emergency (ER) | payer SELFPAY ==
--- NOTE | 2019-08-01 18:26 | Event Note ---
ED Screening Note Date of service: 08/01/19 Time: 18:24 ED Screening Note: 39 yo female presents with abd pain with vomitting blood streaks x today states dark red streaks of blood first constipation , now diar This initial assessment/diagnostic orders/clinical plan/treatment(s) is/are subject to change based on patients health status, clinical progression and re- assessment by fellow clinical providers in the ED. Further treatment and workup at subsequent clinical providers discretion. Patient/guardian urged not to elope from the ED as their condition may be serious if not clinically assessed and managed. Initial orders include: labs, ua,
[2019-08-01 19:09] LABS: Bacteria,Urine 1+ /HPF (Negative); Bilirubin,Urine NEG (Negative); Blood,Urine SM (Negative); Color,Urine Yellow (Yellow); Mucus,Urine FEW /HPF; Protein,Urine <15 mg/dL mg/dL (Negative); Urobilinogen,Urine < 2.0 mg/dL (<2.0)
[2019-08-01 19:27] LABS: Hematocrit 40.2 % (30.3-42.9); Hemoglobin 13.5 gm/dl (10.1-14.3); Mean Corpuscular HGB Conc 34 % (30-34); Mean Corpuscular Volume 96 fl (79-97); Platelet Count 291 K/mm3 (140-440); Red Blood Count 4.21 M/mm3 (3.65-5.03)
[2019-08-01 19:40] LABS: BUN/Creatinine Ratio 14; Blood Urea Nitrogen 10 mg/dL (7-17)
[2019-08-01 19:41] LABS: Alanine Aminotransferase 19 units/L (7-56); Albumin 4.1 g/dL (3.9-5); Calcium 9.1 mg/dL (8.4-10.2); Hemolysis Index 16
[2019-08-01 20:06] LABS: Basophils % (Manual) 0 % (0.0-1.8); Total Cells Counted 100
[2019-08-01 20:08] LABS: Platelet Estimate Consistent w Auto; Target Cells Few
[2019-08-01] MEDS ORDERED: HYDROmorphone 1 MG/1 ML INJ IV ONE (23:02)
[2019-08-01] MEDS ORDERED: ONDANSETRON 4 MG/2 ML INJ IV ONE (23:02)
[2019-08-01] MEDS ORDERED: PANTOPRAZOLE 40 MG INJ IV ONE (23:02)
[2019-08-01] MEDS ORDERED: SODIUM CHLORIDE 0.9% 500 ML 500 ML IV ONE (23:04)
[2019-08-01] MEDS ORDERED: SODIUM CHLORIDE 0.9% 1000 ML 1,000 ML ONE (23:16)
--- NOTE | 2019-08-01 23:31 | Emergency Department Report ---
ED Abdominal Pain HPI - General Chief Complaint: Medical Clearance Stated Complaint: COUGHING UP BLOOD/KNOT ON STOMACH Time Seen by Provider: 08/01/19 22:54 Source: patient Mode of arrival: Ambulatory Limitations: No Limitations - History of Present Illness Initial Comments: 39-year-old female with a past medical history obesity, hypertension, previous and tubal ligation presents to the hospital complaining of vomiting blood today. Patient had 2 episodes of vomiting. Both were blood-streaked. No vomiting since noon. Nausea improved. She has had a "knot" to her abd at the right saira umbilical area for several weeks that has progressively gotten bigger. This area is tender to palpation and rated 8/10 in intensity. Abdominal pain is intermittent and feels like a bad period cramps. Patient denies melena, hematochezia, fever, or diarrhea. Pt ran out of her BP meds 2 days ago and presents hypertensive. PMD None - Related Data Previous Rx's Medication Instructions Recorded Last Taken Type Ibuprofen [Motrin] 800 mg PO Q8HR #30 tablet 09/21/18 Unknown Rx Lisinopril [Zestril TAB] 20 mg PO QDAY #40 tablet 09/21/18 Unknown Rx Acetaminophen [Tylenol Extra 1,000 mg PO QID PRN #30 tablet 12/11/18 Unknown Rx Strength] Metoclopramide [Reglan] 10 mg PO Q6H PRN #30 tablet 12/11/18 Unknown Rx diphenhydrAMINE [Benadryl CAP] 25 mg PO Q6HR PRN #30 capsule 12/11/18 Unknown Rx predniSONE [Deltasone] 40 mg PO QDAY 5 Days #10 tab 12/11/18 Unknown Rx Naproxen [Naprosyn] 500 mg PO BID PRN #20 tablet 06/10/19 Unknown Rx cephALEXin [Keflex] 500 mg PO Q6HR #28 capsule 06/10/19 Unknown Rx Menthol/Camphor [[place] 1 applicatio TP QID PRN #1 tube 07/19/19 Unknown Rx Ointment] Naproxen 500 mg PO BID PRN #30 tablet 07/19/19 Unknown Rx Docusate Sodium [Colace] 100 mg PO BID PRN #20 capsule 08/02/19 Unknown Rx Nitrofurantoin [place]/M-Cryst 100 mg PO Q12HR #10 capsule 08/02/19 Unknown Rx [Macrobid CAP] Ondansetron [Zofran Odt] 4 mg PO Q8HR PRN #20 tab.rapdis 08/02/19 Unknown Rx Pantoprazole [Protonix TAB] 40 mg PO QDAY #20 tablet. 08/02/19 Unknown Rx traMADoL [Ultram 50 MG tab] 50 mg PO Q6HR PRN #20 tablet 08/02/19 Unknown Rx Allergies Allergy/AdvReac Type Severity Reaction Status Date / Time latex Allergy Itching Verified 08/01/19 17:55 ED Review of Systems ROS: Stated complaint: COUGHING UP BLOOD/KNOT ON STOMACH Other details as noted in HPI Comment: All other systems reviewed and negative ED Past Medical Hx - Past Medical History Hx Hypertension: Yes - Surgical History Additional Surgical History: c-sec - Social History Smoking Status: Never Smoker Substance Use Type: None - Medications Home Medications: Home Medications Medication Instructions Recorded Confirmed Last Taken Type Ibuprofen [Motrin] 800 mg PO Q8HR #30 tablet 09/21/18 Unknown Rx Lisinopril [Zestril TAB] 20 mg PO QDAY #40 tablet 09/21/18 Unknown Rx Acetaminophen [Tylenol Extra 1,000 mg PO QID PRN #30 tablet 12/11/18 Unknown Rx Strength] Metoclopramide [Reglan] 10 mg PO Q6H PRN #30 tablet 12/11/18 Unknown Rx diphenhydrAMINE [Benadryl CAP] 25 mg PO Q6HR PRN #30 capsule 12/11/18 Unknown Rx predniSONE [Deltasone] 40 mg PO QDAY 5 Days #10 tab 12/11/18 Unknown Rx Naproxen [Naprosyn] 500 mg PO BID PRN #20 tablet 06/10/19 Unknown Rx cephALEXin [Keflex] 500 mg PO Q6HR #28 capsule 06/10/19 Unknown Rx Menthol/Camphor [[place] 1 applicatio TP QID PRN #1 tube 07/19/19 Unknown Rx Ointment] Naproxen 500 mg PO BID PRN #30 tablet 07/19/19 Unknown Rx Docusate Sodium [Colace] 100 mg PO BID PRN #20 capsule 08/02/19 Unknown Rx Nitrofurantoin [place]/M-Cryst 100 mg PO Q12HR #10 capsule 08/02/19 Unknown Rx [Macrobid CAP] Ondansetron [Zofran Odt] 4 mg PO Q8HR PRN #20 tab.mikdis 08/02/19 Unknown Rx Pantoprazole [Protonix TAB] 40 mg PO QDAY #20 tablet. 08/02/19 Unknown Rx traMADoL [Ultram 50 MG tab] 50 mg PO Q6HR PRN #20 tablet 08/02/19 Unknown Rx ED Physical Exam - General Limitations: No Limitations - Other Other exam information: General: No acute distress Head: Atraumatic Eyes: normal appearance ENT: Moist mucous membranes Neck: Normal appearance, no midline tenderness Chest: Clear to auscultation bilaterally CV: Regular rate and rhythm Abdomen: Soft, normal bowel sounds, mild swelling to the right periumbilical hernia possible hernia tender to palpation, nondistended, no rebound or guarding Rectal: guaic negative brown stool no gross blood or melena Back: Normal inspection Extremity: Normal inspection infection, full range of motion Neuro: Alert O x 3, no facial asymmetry, speech clear, no gross motor sensory deficit Psych: Appropriate behavior Skin: No rash ED Course Vital Signs 08/01/19 08/01/19 08/01/19 18:23 23:21 23:30 Temperature 98.6 F Pulse Rate 88 73 66 Respiratory 20 9 L 13 Rate Blood Pressure 172/104 130/85 O2 Sat by Pulse 98 99 Oximetry 08/01/19 08/02/19 23:45 00:00 Temperature Pulse Rate 79 77 Respiratory 13 14 Rate Blood Pressure 123/75 118/69 O2 Sat by Pulse 95 96 Oximetry - Reevaluation(s) Reevaluation #1: 08/02/19 00:04 Patient was premedicated with Dilaudid and Zofran. I Was able to reduce right periumbilical hernia. CT ordered after reduction ED Medical Decision Making - Lab Data Result diagrams: 08/01/19 19:09 08/01/19 19:09 Lab Results 08/01/19 08/01/19 08/01/19 Range/Units 18:47 19:09 19:09 WBC 11.2 H (4.5-11.0) K/mm3 RBC 4.21 (3.65-5.03) M/mm3 Hgb 13.5 (10.1-14.3) gm/dl Hct 40.2 (30.3-42.9) % MCV 96 (79-97) fl MCH 32 (28-32) pg MCHC 34 (30-34) % RDW 15.0 (13.2-15.2) % Plt Count 291 (140-440) K/mm3 Lymph # Bacteriologist Pharmaceutical Add Manual Diff Complete Total Counted 100 Seg Neuts % (Manual) 48.0 (40.0-70.0) % Band Neutrophils % 0 % Lymphocytes % (Manual) 41.0 H (13.4-35.0) % Reactive Lymphs % (Man) 0 % Monocytes % (Manual) 9.0 H (0.0-7.3) % Eosinophils % (Manual) 2.0 (0.0-4.3) % Basophils % (Manual) 0 (0.0-1.8) % Metamyelocytes % 0 % Myelocytes % 0 % Promyelocytes % 0 % Blast Cells % 0 % Nucleated RBC % Not Reportable Seg Neutrophils # Man 5.4 (1.8-7.7) K/mm3 Band Neutrophils # 0.0 K/mm3 Lymphocytes # (Manual) 4.6 (1.2-5.4) K/mm3 Abs React Lymphs (Man) 0.0 K/mm3 Monocytes # (Manual) 1.0 H (0.0-0.8) K/mm3 Eosinophils # (Manual) 0.2 (0.0-0.4) K/mm3 Basophils # (Manual) 0.0 (0.0-0.1) K/mm3 Metamyelocytes # 0.0 K/mm3 Myelocytes # 0.0 K/mm3 Promyelocytes # 0.0 K/mm3 Blast Cells # 0.0 K/mm3 WBC Morphology Not Reportable Hypersegmented Neuts Not Reportable Hyposegmented Neuts Not Reportable Hypogranular Neuts Not Reportable Smudge Cells Not Reportable Toxic Granulation Not Reportable Toxic Vacuolation Not Reportable Dohle Bodies Not Reportable Pelger-Huet Anomaly Not Reportable Milind Rods Not Reportable Platelet Estimate Consistent w auto Clumped Platelets Not Reportable Plt Clumps, EDTA Not Reportable Large Platelets Not Reportable Giant Platelets Not Reportable Platelet Satelliting Not Reportable Plt Morphology Comment Not Reportable RBC Morphology Not Reportable Dimorphic RBCs Not Reportable Polychromasia Not Reportable Hypochromasia Not Reportable Poikilocytosis Not Reportable Anisocytosis Not Reportable Microcytosis Not Reportable Macrocytosis Not Reportable Spherocytes Not Reportable Pappenheimer Bodies Not Reportable Sickle Cells Not Reportable Target Cells Few Tear Drop Cells Not Reportable Ovalocytes Not Reportable Helmet Cells Not Reportable Rodriguez-Mabton Bodies Not Reportable [place] Rings Not Reportable [place] Cells Not Reportable Bite Cells Not Reportable Crenated Cell Not Reportable Elliptocytes Not Reportable Acanthocytes (Spur) Not Reportable Rouleaux Not Reportable Hemoglobin C Crystals Not Reportable Schistocytes Not Reportable Malaria parasites Not Reportable Ulisses Bodies Not Reportable Hem Pathologist Commnt No Sodium 142 (137-145) mmol/L Potassium 4.0 (3.6-5.0) mmol/L Chloride 104.4 (98-107) mmol/L Carbon Dioxide 25 (22-30) mmol/L Anion Gap 17 mmol/L BUN 10 (7-17) mg/dL Creatinine 0.7 (0.7-1.2) mg/dL Estimated GFR > 60 ml/min BUN/Creatinine Ratio 14 % Glucose 113 H (65-100) mg/dL Calcium 9.1 (8.4-10.2) mg/dL Total Bilirubin < 0.20 (0.1-1.2) mg/dL AST 17 (5-40) units/L ALT 19 (7-56) units/L Alkaline Phosphatase 59 (35-129) units/L Total Protein 7.0 (6.3-8.2) g/dL Albumin 4.1 (3.9-5) g/dL Albumin/Globulin Ratio 1.4 % HCG, Qual (Negative) Urine Color Yellow (Yellow) Urine Turbidity Cloudy (Clear) Urine pH 8.0 H (5.0-7.0) Ur Specific [place] 1.021 (1.003-1.030) Urine Protein <15 mg/dl (Negative) mg/dL Urine Glucose (UA) Neg (Negative) mg/dL Urine Ketones Neg (Negative) mg/dL Urine Blood Sm (Negative) Urine Nitrite Neg (Negative) Urine Bilirubin Neg (Negative) Urine Urobilinogen < 2.0 (<2.0) mg/dL Ur Leukocyte Esterase Sm (Negative) Urine WBC (Auto) 13.0 H (0.0-6.0) /HPF Urine RBC (Auto) 14.0 (0.0-6.0) /HPF U Epithel Cells (Auto) 5.0 (0-13.0) /HPF Urine Bacteria (Auto) 1+ (Negative) /HPF Urine Mucus Few /HPF 08/01/19 Range/Units 19:09 WBC (4.5-11.0) K/mm3 RBC (3.65-5.03) M/mm3 Hgb (10.1-14.3) gm/dl Hct (30.3-42.9) % MCV (79-97) fl MCH (28-32) pg MCHC (30-34) % RDW (13.2-15.2) % Plt Count (140-440) K/mm3 Lymph # Add Manual Diff Total Counted Seg Neuts % (Manual) (40.0-70.0) % Band Neutrophils % % Lymphocytes % (Manual) (13.4-35.0) % Reactive Lymphs % (Man) % Monocytes % (Manual) (0.0-7.3) % Eosinophils % (Manual) (0.0-4.3) % Basophils % (Manual) (0.0-1.8) % Metamyelocytes % % Myelocytes % % Promyelocytes % % Blast Cells % % Nucleated RBC % Seg Neutrophils # Man (1.8-7.7) K/mm3 Band Neutrophils # K/mm3 Lymphocytes # (Manual) (1.2-5.4) K/mm3 Abs React Lymphs (Man) K/mm3 Monocytes # (Manual) (0.0-0.8) K/mm3 Eosinophils # (Manual) (0.0-0.4) K/mm3 Basophils # (Manual) (0.0-0.1) K/mm3 Metamyelocytes # K/mm3 Myelocytes # K/mm3 Promyelocytes # K/mm3 Blast Cells # K/mm3 WBC Morphology Hypersegmented Neuts Hyposegmented Neuts Hypogranular Neuts Smudge Cells Toxic Granulation Toxic Vacuolation Dohle Bodies Pelger-Huet Anomaly Milind Rods Platelet Estimate Clumped Platelets Plt Clumps, EDTA Large Platelets Giant Platelets Platelet Satelliting Plt Morphology Comment RBC Morphology Dimorphic RBCs Polychromasia Hypochromasia Poikilocytosis Anisocytosis Microcytosis Macrocytosis Spherocytes Pappenheimer Bodies Sickle Cells Target Cells Tear Drop Cells Ovalocytes Helmet Cells Rodriguez-Mabton Bodies [place] Rings Wendy Cells Bite Cells Crenated Cell Elliptocytes Acanthocytes (Spur) Rouleaux Hemoglobin C Crystals Schistocytes Malaria parasites Ulisses Bodies Hem Pathologist Commnt Sodium (137-145) mmol/L Potassium (3.6-5.0) mmol/L Chloride (98-107) mmol/L Carbon Dioxide (22-30) mmol/L Anion Gap mmol/L BUN (7-17) mg/dL Creatinine (0.7-1.2) mg/dL Estimated GFR ml/min BUN/Creatinine Ratio % Glucose (65-100) mg/dL Calcium (8.4-10.2) mg/dL Total Bilirubin (0.1-1.2) mg/dL AST (5-40) units/L ALT (7-56) units/L Alkaline Phosphatase (35-129) units/L Total Protein (6.3-8.2) g/dL Albumin (3.9-5) g/dL Albumin/Globulin Ratio % HCG, Qual Negative (Negative) Urine Color (Yellow) Urine Turbidity (Clear) Urine pH (5.0-7.0) Ur Specific [place] (1.003-1.030) Urine Protein (Negative) mg/dL Urine Glucose (UA) (Negative) mg/dL Urine Ketones (Negative) mg/dL Urine Blood (Negative) Urine Nitrite (Negative) Urine Bilirubin (Negative) Urine Urobilinogen (<2.0) mg/dL Ur Leukocyte Esterase (Negative) Urine WBC (Auto) (0.0-6.0) /HPF Urine RBC (Auto) (0.0-6.0) /HPF U Epithel Cells (Auto) (0-13.0) /HPF Urine Bacteria (Auto) (Negative) /HPF Urine Mucus /HPF - Radiology Data Radiology results: report reviewed CT ABDOMEN AND PELVIS WITH IV CONTRAST INDICATION: Saira-umbilical pain and swelling TECHNIQUE: Following the administration of intravenous contrast, multiple axial CT images of the abdomen and pelvis were acquired. Sagittal and coronal reformats were obtained. All CT performed at this facility utilize dose reduction techniques including automated exposure control, iterative reconstruction and weight based dosing when appropriate to reduce patient radiation dose to as low as reasonably achievable. COMPARISON: None FINDINGS: Limited imaging of the bilateral lung bases shows no acute abnormality. Abdomen: The liver, gallbladder, spleen, pancreas, bilateral adrenal glands and bilateral kidneys show no evidence of acute abnormality. There are 2 sequential fat-containing ventral hernias that appear to be just superior to the umbilicus with a hernial opening measuring 3 cm. There is no significant associated inflammatory change or evidence of bowel obstruction. The appendix is visualized and appears normal. There is no free fluid. Pelvis: The uterus and urinary bladder appear within normal limits. There is no free pelvic fluid. Bones and Soft Tissues: Evaluation of bony structures demonstrates no evidence of acute bony abnormality. Evaluation of soft tissue structures demonstrates no acute soft tissue abnormality. IMPRESSION: 1. Two sequential fat-containing saira-umbilical hernia is without significant inflammatory change. This may be the source of patient's abdominal pain, but please correlate with patient's clinical circumstances. - Medical Decision Making pt with n,v x2. resolved at time of ED arrival. Pt tolerating po intake h/h, bun, rectal exam normal no signs of active bleeding or viral sign instability partially reducible fat hernia without inflammation or obstruction Urine suggestive of UTI treated with po macrobid, culture pending pt received Dilaudid, Protonix, normal saline, and Zofran in ed BP improved with pain reduction. Outpt f/u advised for bp management - Differential Diagnosis hernia, gastritis, esophagitis, pud Theresa-Salgado Critical Care Time: No Critical care attestation.: If time is entered above; I have spent that time in minutes in the direct care of this critically ill patient, excluding procedure time. ED Disposition Clinical Impression: UTI (urinary tract infection), Hematemesis, Ventral hernia without obstruction or gangrene Disposition: TO HOME OR SELFCARE Is pt being admited?: No Does the pt Need Aspirin: No Condition: Stable Instructions: Gastrointestinal Bleeding (ED), Urinary Tract Infection in Women (ED), Ventral Hernia (ED) Additional Instructions: Take the medication as prescribed. Follow-up with your doctor or doctor/clinic provided. Return if symptoms worsen as indicated by your discharge instructions. Prescriptions: Docusate Sodium [Colace] 100 mg PO BID PRN #20 capsule PRN Reason: Constipation Nitrofurantoin [place]/M-Cryst [Macrobid CAP] 100 mg PO Q12HR #10 capsule Pantoprazole [Protonix TAB] 40 mg PO QDAY #20 tablet. traMADoL [Ultram 50 MG tab] 50 mg PO Q6HR PRN #20 tablet PRN Reason: Pain Ondansetron [Zofran Odt] 4 mg PO Q8HR PRN #20 tab.rapdis PRN Reason: Nausea And Vomiting Referrals: [facility] [Provider Group] - 3-5 Days (primary care clinic) [facility] [Provider Group] - 3-5 Days (GI doctors ) YARA CHUA MD [Staff Physician] - 3-5 Days (General surgeon regarding hernia) Forms: Work/School Release Form(ED) Time of Disposition: 01:51
[2019-08-02] MEDS ORDERED: cefTRIAXone/NS 1 GM/50 ML 1 GM/50 ML BAG IV ONE (00:58)
--- NOTE | 2019-08-02 01:06 | Cat Scan Report ---
CT ABDOMEN AND PELVIS WITH IV CONTRAST INDICATION: Parrish-umbilical pain and swelling TECHNIQUE: Following the administration of intravenous contrast, multiple axial CT images of the abdo men and pelvis were acquired. Sagittal and coronal reformats were obtained. All CT performed at this facility utilize dose reduction techniques including automated exposure control, iterative reconstru ction and weight based dosing when appropriate to reduce patient radiation dose to as low as reasonab ly achievable. COMPARISON: None FINDINGS: Limited imaging of the bilateral lung bases shows no acute abnormality. Abdomen: The liver, gallbladder, spleen, pancreas, bilateral adrenal glands and bilateral kidneys kimo w no evidence of acute abnormality. There are 2 sequential fat-containing ventral hernias that appear to be just superior to the umbilicu s with a hernial opening measuring 3 cm. There is no significant associated inflammatory change or ev idence of bowel obstruction. The appendix is visualized and appears normal. There is no free fluid. Pelvis: The uterus and urinary bladder appear within normal limits. There is no free pelvic fluid. Bones and Soft Tissues: Evaluation of bony structures demonstrates no evidence of acute bony abnormal ity. Evaluation of soft tissue structures demonstrates no acute soft tissue abnormality. IMPRESSION: 1. Two sequential fat-containing parrish-umbilical hernia is without significant inflammatory change. Th is may be the source of patient's abdominal pain, but please correlate with patient's clinical circum stances. Signer Name: Anna Singh MD Signed: 08/02/2019 1:01 AM Workstation Name: [email or web address]
[2019-08-02] MEDS ORDERED: NITROFURANTOIN MONOHYD/M-CRYST 100 MG CAP PO ONE (01:16)
[2019-08-02 01:17] VITALS: BP 118/69
== END 2019-08-02 02:25 | disposition home or self-care (01) ==
LOC: ED 17:54
DX: N39.0 Urinary tract infection, site not specified (principal); K92.0 Hematemesis; K43.9 Ventral hernia without obstruction or gangrene; I10 Essential (primary) hypertension; E66.9 Obesity, unspecified; Z68.43 Body mass index [BMI] 50.0-59.9, adult; Z91.040 Latex allergy status; Z98.51 Tubal ligation status; Z79.1 Long term (current) use of non-steroidal anti-inflammatories (NSAID); Z79.899 Other long term (current) drug therapy
CPT/HCPCS: 36415; 74177; 80053; 81001; 82271; 84703; 85007; 85025; 87086; 96374; 96375; 99284; C9113; J1170; J2405; J7030; Q9967

== ENCOUNTER 2020-10-13 12:22 | Emergency (ER) | payer BC ==
--- NOTE | 2020-10-13 14:27 | Emergency Department Report ---
HPI - General Chief Complaint: High BP Time Seen by Provider: 10/13/20 13:54 - HPI HPI: This is a 40-year-old -[place] female presents to the emergency department with a complaint of some recent elevated blood pressure. The patient admits to medication noncompliance and has not taken her lisinopril (20 mg) over the past month. Patient says that she works a lot and does not have a primary care physician. She does have a history of hypertension. She is a tobacco smoker. She denies any illicit drug use. Patient denies any headache, vision change, chest pain, shortness of breath, lower extremity swelling. Her only complaint is some intermittent left hand numbness and/or paresthesias. She has not taken anything for symptoms prior to presentation. Patient says that she has been checking her blood pressure at home repeatedly over the past few days and the blood pressure got as high as a systolic of 190. ED Past Medical Hx - Past Medical History Hx Hypertension: Yes - Surgical History Additional Surgical History: c-sec - Social History Smoking Status: Current Every Day Smoker Substance Use Type: Marijuana - Medications Home Medications: Home Medications Medication Instructions Recorded Confirmed Last Taken Type Ibuprofen [Motrin] 800 mg PO Q8HR #30 tablet 09/21/18 Unknown Rx Acetaminophen [Tylenol Extra 1,000 mg PO QID PRN #30 tablet 12/11/18 Unknown Rx Strength] Metoclopramide [Reglan] 10 mg PO Q6H PRN #30 tablet 12/11/18 Unknown Rx diphenhydrAMINE [Benadryl CAP] 25 mg PO Q6HR PRN #30 capsule 12/11/18 Unknown Rx predniSONE [Deltasone] 40 mg PO QDAY 5 Days #10 tab 12/11/18 Unknown Rx Naproxen [Naprosyn] 500 mg PO BID PRN #20 tablet 06/10/19 Unknown Rx cephALEXin [Keflex] 500 mg PO Q6HR #28 capsule 06/10/19 Unknown Rx Menthol/Camphor [[place] 1 applicatio TP QID PRN #1 tube 07/19/19 Unknown Rx Ointment] Naproxen 500 mg PO BID PRN #30 tablet 07/19/19 Unknown Rx Docusate Sodium [Colace] 100 mg PO BID PRN #20 capsule 08/02/19 Unknown Rx Nitrofurantoin [place]/M-Cryst 100 mg PO Q12HR #10 capsule 08/02/19 Unknown Rx [Macrobid CAP] Ondansetron [Zofran Odt] 4 mg PO Q8HR PRN #20 tab.rapdis 08/02/19 Unknown Rx Pantoprazole [Protonix TAB] 40 mg PO QDAY #20 tablet. 08/02/19 Unknown Rx traMADoL [Ultram 50 MG tab] 50 mg PO Q6HR PRN #20 tablet 08/02/19 Unknown Rx Erythromycin [Erythromycin Ophth 1 applic OU 6XD 7 Days #3.5 gm 03/14/20 Unknown Rx Oint] lisinopriL [Zestril TAB] 20 mg PO QDAY #30 tablet 10/13/20 Unknown Rx ED Review of Systems ROS: Stated complaint: HIGH BLOOD PRESSURE Other details as noted in HPI Comment: All other systems reviewed and negative Constitutional: denies: chills, fever Eyes: denies: eye pain, vision change ENT: denies: ear pain, throat pain Respiratory: denies: cough, shortness of breath Cardiovascular: denies: chest pain, palpitations Gastrointestinal: denies: abdominal pain, vomiting Genitourinary: denies: dysuria, discharge Musculoskeletal: denies: back pain, arthralgia Skin: denies: rash, lesions Neurological: paresthesias. denies: headache Physical Exam - Physical Exam Vital Signs: Vital Signs 10/13/20 12:58 Temperature 98.9 F Pulse Rate 76 Respiratory 16 Rate Blood Pressure 171/96 O2 Sat by Pulse 97 Oximetry Physical Exam: GENERAL: The patient is well-developed well-nourished. HENT: Normocephalic. Atraumatic. Patient has moist mucous membranes. EYES: Extraocular motions are intact. NECK: Supple. Trachea is midline. CHEST/LUNGS: Clear to auscultation. There is no respiratory distress noted. HEART/CARDIOVASCULAR: Regular. There is no tachycardia. There is no murmur. ABDOMEN: Abdomen is soft, nontender. Patient has normal bowel sounds. Obese habitus. SKIN: Skin is warm and dry. NEURO: The patient is awake, alert, and oriented. The patient is cooperative. The patient has no focal neurologic deficits. Normal speech. MUSCULOSKELETAL: There is no tenderness or deformity. There is no limitation range of motion. +2/4 radial pulse and capillary refill less than 2 seconds to the affected left upper extremity. ED Course Vital Signs 10/13/20 12:58 Temperature 98.9 F Pulse Rate 76 Respiratory 16 Rate Blood Pressure 171/96 O2 Sat by Pulse 97 Oximetry ED Medical Decision Making - Lab Data Result diagrams: 10/13/20 14:29 10/13/20 14:29 Lab Results 10/13/20 10/13/20 Range/Units 14:29 14:29 WBC 7.7 (4.5-11.0) K/mm3 RBC 4.11 (3.65-5.03) M/mm3 Hgb 13.4 (10.1-14.3) gm/dl Hct 39.1 (30.3-42.9) % MCV 95 (79-97) fl MCH 33 H (28-32) pg MCHC 34 (30-34) % RDW 15.0 (13.2-15.2) % Plt Count 273 (140-440) K/mm3 Lymph % (Auto) 38.2 H (13.4-35.0) % [place] % (Auto) 5.9 (0.0-7.3) % Eos % (Auto) 2.1 (0.0-4.3) % Baso % (Auto) 0.5 (0.0-1.8) % Lymph # (Auto) 2.9 (1.2-5.4) K/mm3 [place] # (Auto) 0.5 (0.0-0.8) K/mm3 Eos # (Auto) 0.2 (0.0-0.4) K/mm3 Baso # (Auto) 0.0 (0.0-0.1) K/mm3 Seg Neutrophils % 53.3 (40.0-70.0) % Seg Neutrophils # 4.1 (1.8-7.7) K/mm3 Sodium 141 (137-145) mmol/L Potassium 4.0 (3.6-5.0) mmol/L Chloride 104.4 (98-107) mmol/L Carbon Dioxide 31 H (22-30) mmol/L Anion Gap 10 mmol/L BUN 9 (7-17) mg/dL Creatinine 0.8 (0.6-1.2) mg/dL Estimated GFR > 60 ml/min BUN/Creatinine Ratio 11 % Glucose 121 H (65-100) mg/dL Calcium 8.9 (8.4-10.2) mg/dL Magnesium 1.80 (1.7-2.3) mg/dL - Medical Decision Making This patient presents with a complaint of elevated blood pressure over the past few days with admission of medication noncompliance over the past month. She also complained of some intermittent left hand numbness versus paresthesias. On examination she has a good radial pulse and capillary refill is less than 2 seconds. She has full range of motion of the left upper extremity and overall appears neurovascularly intact. Labs have been unremarkable including CBC, metabolic panel and magnesium level. The patient's blood pressure still shows hypertension, but is at a reasonable level without any antihypertensive medications given. We discussed dietary changes including smoking cessation, decreased salt and caffeine intake, and keeping a blood pressure log. She will be restarted on her lisinopril. She was given multiple outpatient referrals for primary care. Critical Care Time: No Critical care attestation.: If time is entered above; I have spent that time in minutes in the direct care of this critically ill patient, excluding procedure time. ED Disposition Clinical Impression: Tobacco use, Noncompliance with medication regimen Hypertension Qualifiers: Hypertension type: essential hypertension Qualified Code(s): I10 - Essential (primary) hypertension Disposition: DC- TO HOME OR SELFCARE Is pt being admited?: No Condition: Stable Instructions: Health Risks of Smoking, Steps to Quit Smoking, Hypertension, Adult, Hypertension (ED) Additional Instructions: Please follow-up with a primary care physician in the next few days. Please try and quit smoking. I am restarting you on your lisinopril. Please try to stay away from foods that are high in salt and caffeinated products. Keep a blood pressure log. Return to the emergency department with any worsening of your symptoms, new or concerning symptoms not addressed during this current emergency department visit, or with any acute distress. Prescriptions: lisinopriL [Zestril TAB] 20 mg PO QDAY #30 tablet Referrals: MALCOM BARBA MD [Primary Care Provider] - 3-5 Days KAYLI EMMANUEL MD [Staff Physician] - 3-5 Days [facility] [Provider Group] - 3-5 Days Forms: Work/School Release Form(ED) Time of Disposition: 15:14
[2020-10-13 14:40] LABS: Basophils % (Auto) 0.5 % (0.0-1.8); Eosinophils # (Auto) 0.2 K/mm3 (0.0-0.4); Eosinophils % (Auto) 2.1 % (0.0-4.3); Hematocrit 39.1 % (30.3-42.9); Hemoglobin 13.4 gm/dl (10.1-14.3); Lymphocytes # (Auto) 2.9 K/mm3 (1.2-5.4); Lymphocytes % (Auto) 38.2 % (13.4-35.0); Mean Corpuscular HGB Conc 34 % (30-34); Mean Corpuscular Volume 95 fl (79-97); Monocytes # (Auto) 0.5 K/mm3 (0.0-0.8); Monocytes % (Auto) 5.9 % (0.0-7.3); Platelet Count 273 K/mm3 (140-440); Red Blood Count 4.11 M/mm3 (3.65-5.03)
[2020-10-13 15:03] LABS: BUN/Creatinine Ratio 11; Blood Urea Nitrogen 9 mg/dL (7-17); Calcium 8.9 mg/dL (8.4-10.2); Hemolysis Index 2
[2020-10-13 15:38] VITALS: BP 154/97
== END 2020-10-13 14:57 | disposition home or self-care (01) ==
LOC: ED 12:22
DX: I10 Essential (primary) hypertension (principal); F12.10 Cannabis abuse, uncomplicated; Z91.14 Patient's other noncompliance with medication regimen; Z72.0 Tobacco use; Z98.890 Other specified postprocedural states; Z79.1 Long term (current) use of non-steroidal anti-inflammatories (NSAID); Z79.899 Other long term (current) drug therapy; Z91.040 Latex allergy status
CPT/HCPCS: 36415; 80048; 83735; 85025

== ENCOUNTER 2020-10-30 15:40 | Emergency (ER) | payer BC ==
[2020-10-30 15:53] VITALS: BP 162/117
--- NOTE | 2020-10-30 16:17 | Emergency Department Report ---
ED General Adult HPI - General Chief complaint: Neuro Symptoms/Deficit Stated complaint: LT ARM/HAND NUMB PUI?: No Time Seen by Provider: 10/30/20 16:07 Source: patient Mode of arrival: Ambulatory Limitations: No Limitations - History of Present Illness Initial comments: 40-year-old morbid obese -[place]ian female with a past medical history of hypertension that is uncontrolled presents to the emergency room for 2-week complaint of left arm and hand numbness that is intermittent. Patient states that is usually happens in the morning when she gets out of bed. Patient states that is never went away. Patient denies any injury. She denies any chest pain shortness of breath. Patient states that she was here earlier this month and was started on lisinopril 20 mg for hypertension. Patient states she does have a primary care provider as of 11/03/2020. Patient denies any injury denies any neck pain reports that she was having headaches states that had improved with her blood pressure medication. Patient states that she is very compliant with her meds. Onset/Timin -: week(s) Location: left, upper extremity Severity scale (0 -10): 8 Quality: other (tingle) Consistency: intermittent Associated Symptoms: denies other symptoms Treatments Prior to Arrival: none - Related Data Previous Rx's Medication Instructions Recorded Last Taken Type Ibuprofen [Motrin] 800 mg PO Q8HR #30 tablet 09/21/18 Unknown Rx Acetaminophen [Tylenol Extra 1,000 mg PO QID PRN #30 tablet 12/11/18 Unknown Rx Strength] Metoclopramide [Reglan] 10 mg PO Q6H PRN #30 tablet 12/11/18 Unknown Rx diphenhydrAMINE [Benadryl CAP] 25 mg PO Q6HR PRN #30 capsule 12/11/18 Unknown Rx predniSONE [Deltasone] 40 mg PO QDAY 5 Days #10 tab 12/11/18 Unknown Rx Naproxen [Naprosyn] 500 mg PO BID PRN #20 tablet 06/10/19 Unknown Rx cephALEXin [Keflex] 500 mg PO Q6HR #28 capsule 06/10/19 Unknown Rx Menthol/Camphor [[place] 1 applicatio TP QID PRN #1 tube 07/19/19 Unknown Rx Ointment] Naproxen 500 mg PO BID PRN #30 tablet 07/19/19 Unknown Rx Docusate Sodium [Colace] 100 mg PO BID PRN #20 capsule 08/02/19 Unknown Rx Nitrofurantoin [place]/M-Cryst 100 mg PO Q12HR #10 capsule 08/02/19 Unknown Rx [Macrobid CAP] Ondansetron [Zofran Odt] 4 mg PO Q8HR PRN #20 tab.rapdis 08/02/19 Unknown Rx Pantoprazole [Protonix TAB] 40 mg PO QDAY #20 tablet. 08/02/19 Unknown Rx traMADoL [Ultram 50 MG tab] 50 mg PO Q6HR PRN #20 tablet 08/02/19 Unknown Rx Erythromycin [Erythromycin Ophth 1 applic OU 6XD 7 Days #3.5 gm 03/14/20 Unknown Rx Oint] lisinopriL [Zestril TAB] 20 mg PO QDAY #30 tablet 10/13/20 Unknown Rx amLODIPine 10 mg PO DAILY #30 tab 10/30/20 Unknown Rx Allergies Allergy/AdvReac Type Severity Reaction Status Date / Time latex Allergy Itching Verified 10/30/20 15:50 ED Review of Systems ROS: Stated complaint: LT ARM/HAND NUMB Other details as noted in HPI Comment: All other systems reviewed and negative ED Past Medical Hx - Past Medical History Hx Hypertension: Yes - Surgical History Additional Surgical History: c-sec/ HAND - Social History Smoking Status: Never Smoker Substance Use Type: None - Medications Home Medications: Home Medications Medication Instructions Recorded Confirmed Last Taken Type Ibuprofen [Motrin] 800 mg PO Q8HR #30 tablet 09/21/18 Unknown Rx Acetaminophen [Tylenol Extra 1,000 mg PO QID PRN #30 tablet 12/11/18 Unknown Rx Strength] Metoclopramide [Reglan] 10 mg PO Q6H PRN #30 tablet 12/11/18 Unknown Rx diphenhydrAMINE [Benadryl CAP] 25 mg PO Q6HR PRN #30 capsule 12/11/18 Unknown Rx predniSONE [Deltasone] 40 mg PO QDAY 5 Days #10 tab 12/11/18 Unknown Rx Naproxen [Naprosyn] 500 mg PO BID PRN #20 tablet 06/10/19 Unknown Rx cephALEXin [Keflex] 500 mg PO Q6HR #28 capsule 06/10/19 Unknown Rx Menthol/Camphor [[place] 1 applicatio TP QID PRN #1 tube 07/19/19 Unknown Rx Ointment] Naproxen 500 mg PO BID PRN #30 tablet 07/19/19 Unknown Rx Docusate Sodium [Colace] 100 mg PO BID PRN #20 capsule 08/02/19 Unknown Rx Nitrofurantoin [place]/M-Cryst 100 mg PO Q12HR #10 capsule 08/02/19 Unknown Rx [Macrobid CAP] Ondansetron [Zofran Odt] 4 mg PO Q8HR PRN #20 tab.rapdis 08/02/19 Unknown Rx Pantoprazole [Protonix TAB] 40 mg PO QDAY #20 tablet.dr 08/02/19 Unknown Rx traMADoL [Ultram 50 MG tab] 50 mg PO Q6HR PRN #20 tablet 08/02/19 Unknown Rx Erythromycin [Erythromycin Ophth 1 applic OU 6XD 7 Days #3.5 gm 03/14/20 Unknown Rx Oint] lisinopriL [Zestril TAB] 20 mg PO QDAY #30 tablet 10/13/20 Unknown Rx amLODIPine 10 mg PO DAILY #30 tab 10/30/20 Unknown Rx ED Physical Exam - General Limitations: No Limitations General appearance: alert, in no apparent distress - Head Head exam: Present: atraumatic, normocephalic - Eye Eye exam: Present: normal appearance - ENT ENT exam: Present: mucous membranes moist - Extremities Exam Extremities exam: Present: normal inspection, full ROM - Expanded Upper Extremity Exam Left Shoulder Exam: Present: normal inspection, full ROM Upper Arm exam: Present: normal inspection, full ROM Elbow exam: Present: normal inspection, full ROM Hand Wrist exam: Present: full ROM. Absent: tenderness Vascular: Present: normal capillary refill. Absent: pulse deficit brachial art, radial pulse, brachial pulse, ulnar pulse - Back Exam Back exam: Present: normal inspection - Neurological Exam Neurological exam: Present: alert, oriented X3, normal gait - Psychiatric Psychiatric exam: Present: normal affect, normal mood - Skin Skin exam: Present: warm, dry, intact, normal color. Absent: rash ED Course Vital Signs 10/30/20 15:48 Temperature 98.2 F Pulse Rate 94 H Respiratory 20 Rate Blood Pressure 162/117 O2 Sat by Pulse 99 Oximetry ED Medical Decision Making - Medical Decision Making 40-year-old morbid obese -Romanian female with a past medical history of hypertension that is uncontrolled presents to the emergency room for 2-week complaint of left arm and hand numbness that is intermittent. Patient states that is usually happens in the morning when she gets out of bed. Patient states that is never went away. Patient denies any injury. She denies any chest pain shortness of breath. Patient states that she was here earlier this month and was started on lisinopril 20 mg for hypertension. Patient states she does have a primary care provider as of 11/03/2020. Patient denies any injury denies any neck pain reports that she was having headaches states that had improved with her blood pressure medication. Patient states that she is very compliant with her meds. Review of patient's triage information shows that her blood pressure still elevated at 162/117. I discussed with patient that I will place her on amlodipine 10 mg daily and she is to keep a blood pressure log and take it in with her next appointment on 11/03/[address] [facility]. I also discussed with patient that she is morbid obese and that I would like for her to follow-up with Dr. Zavala which is a bariatric surgeon. Patient agreed. Critical care attestation.: If time is entered above; I have spent that time in minutes in the direct care of this critically ill patient, excluding procedure time. ED Disposition Clinical Impression: HTN (hypertension), Severely overweight, Numbness and tingling in left arm, Tobacco abuse counseling Disposition: DC-01 TO HOME OR SELFCARE Is pt being admited?: No Does the pt Need Aspirin: No Condition: Stable Instructions: Hypertension (ED), Paresthesia, [id number], Steps to Quit Smoking, [id number] Additional Instructions: Please follow-up with your primary care provider. Encouraged to stop smoking cigarettes. Encouraged to lose weight. Take new blood pressure medication as prescribed. Check your blood pressure in 3 days start keeping a log to take to your primary care provider. Prescriptions: amLODIPine 10 mg PO DAILY #30 tab Referrals: YARA ZAVALA MD [Staff Physician] - 3-5 Days PRIMARY CARE, [Primary Care Provider] - 3-5 Days [facility] [Provider Group] - 3-5 Days Forms: Work/School Release Form(ED)
== END 2020-10-30 17:07 | disposition home or self-care (01) ==
LOC: ED 15:40
DX: I10 Essential (primary) hypertension (principal); R20.0 Anesthesia of skin; E66.3 Overweight; Z71.6 Tobacco abuse counseling; Z68.44 Body mass index [BMI] 60.0-69.9, adult; Z98.890 Other specified postprocedural states; Z79.1 Long term (current) use of non-steroidal anti-inflammatories (NSAID); Z79.2 Long term (current) use of antibiotics; Z79.899 Other long term (current) drug therapy; Z91.040 Latex allergy status
CPT/HCPCS: 99282

== ENCOUNTER 2020-12-10 21:10 | Emergency (ER) | payer SELFPAY ==
[2020-12-10] MEDS ORDERED: ASPIRIN 325 MG TAB PO ONE (22:59)
[2020-12-10 23:53] LABS: Basophils % (Auto) 0.4 % (0.0-1.8); Eosinophils # (Auto) 0.2 K/mm3 (0.0-0.4); Eosinophils % (Auto) 1.8 % (0.0-4.3); Hematocrit 41.4 % (30.3-42.9); Lymphocytes % (Auto) 35.9 % (13.4-35.0); Mean Corpuscular HGB Conc 34 % (30-34); Mean Corpuscular Volume 95 fl (79-97); Monocytes # (Auto) 0.5 K/mm3 (0.0-0.8); Monocytes % (Auto) 6.6 % (0.0-7.3); Platelet Count 275 K/mm3 (140-440); Red Blood Count 4.36 M/mm3 (3.65-5.03); Red Cell Distribution Width 14.8 % (13.2-15.2)
[2020-12-11 00:24] LABS: Alanine Aminotransferase 194 units/L (7-56); Albumin 4.3 g/dL (3.9-5); Blood Urea Nitrogen 7 mg/dL (7-17); Calcium 9.3 mg/dL (8.4-10.2); Hemolysis Index 4
[2020-12-11 00:27] LABS: BUN/Creatinine Ratio 10
--- NOTE | 2020-12-11 00:57 | XRay Report ---
CHEST 2 VIEWS INDICATION / CLINICAL INFORMATION: chest pain. COMPARISON: None available. FINDINGS: SUPPORT DEVICES: None. HEART / MEDIASTINUM: No significant abnormality. LUNGS / PLEURA: No significant pulmonary or pleural abnormality. No pneumothorax. ADDITIONAL FINDINGS: No significant additional findings. IMPRESSION: 1. No acute findings. Signer Name: Manuel Cowart MD Signed: 12/11/2020 12:52 AM Workstation Name: [id number]
--- NOTE | 2020-12-11 08:48 | Emergency Department Report ---
ED Chest Pain HPI - General Chief Complaint: Chest Pain Stated Complaint: CHEST PAIN PUI?: No Source: patient Mode of arrival: Ambulatory Limitations: No Limitations - History of Present Illness Initial Comments: This is a 40-year-old female who apparently was in the waiting room for more than 11 hours prior to bed placement. She was seen expeditiously thereafter. She states that she is asymptomatic at the time of my encounter. She describes recurrent reflux symptoms. Last night after she ate she laid down and developed discomfort in the right side of her chest. She states that it was worsened by swallowing and laying down flat. She describes it as a burning. She takes some unknown medication for reflux. She denied any respiratory symptoms whatsoever. She denied any leg pain or swelling or any recent travel. She has no history of VTE. She has no history of gallbladder disease. She does have hypertension. She states that she has had no dyspnea cough or any such respiratory symptoms. She has been asymptomatic for many hours. Patient states that she has an upcoming appointment with her GI specialist. She has never had an EGD. That is planned. MD Complaint: chest pain -: Gradual, minutes(s) Onset: other Pain Location: right chest (Right anterior parasternal) Pain Radiation: none Severity: mild, moderate Quality: other (Burning) Consistency: now resolved Improves With: nothing Worsens With: nothing Context: other (History of reflux) re: other (Odynophagia) Other Symptoms: acid taste in mouth. denies: cough, fever, syncope, rash, leg swelling, palpitations Treatments Prior to Arrival: none - Related Data Previous Rx's Medication Instructions Recorded Last Taken Type Ibuprofen [Motrin] 800 mg PO Q8HR #30 tablet 09/21/18 Unknown Rx Acetaminophen [Tylenol Extra 1,000 mg PO QID PRN #30 tablet 12/11/18 Unknown Rx Strength] Metoclopramide [Reglan] 10 mg PO Q6H PRN #30 tablet 12/11/18 Unknown Rx diphenhydrAMINE [Benadryl CAP] 25 mg PO Q6HR PRN #30 capsule 12/11/18 Unknown Rx predniSONE [Deltasone] 40 mg PO QDAY 5 Days #10 tab 12/11/18 Unknown Rx Naproxen [Naprosyn] 500 mg PO BID PRN #20 tablet 06/10/19 Unknown Rx cephALEXin [Keflex] 500 mg PO Q6HR #28 capsule 06/10/19 Unknown Rx Menthol/Camphor [[place] 1 applicatio TP QID PRN #1 tube 07/19/19 Unknown Rx Ointment] Naproxen 500 mg PO BID PRN #30 tablet 07/19/19 Unknown Rx Docusate Sodium [Colace] 100 mg PO BID PRN #20 capsule 08/02/19 Unknown Rx Nitrofurantoin [place]/M-Cryst 100 mg PO Q12HR #10 capsule 08/02/19 Unknown Rx [Macrobid CAP] Ondansetron [Zofran Odt] 4 mg PO Q8HR PRN #20 tab.rapdis 08/02/19 Unknown Rx Pantoprazole [Protonix TAB] 40 mg PO QDAY #20 tablet. 08/02/19 Unknown Rx traMADoL [Ultram 50 MG tab] 50 mg PO Q6HR PRN #20 tablet 08/02/19 Unknown Rx Erythromycin [Erythromycin Ophth 1 applic OU 6XD 7 Days #3.5 gm 03/14/20 Unknown Rx Oint] lisinopriL [Zestril TAB] 20 mg PO QDAY #30 tablet 10/13/20 Unknown Rx amLODIPine 10 mg PO DAILY #30 tab 10/30/20 Unknown Rx Lansoprazole 30 mg PO QDAY #30 capsule. 12/11/20 Unknown Rx Allergies Allergy/AdvReac Type Severity Reaction Status Date / Time latex Allergy Itching Verified 10/30/20 15:50 Heart Score - HEART Score History: Slightly suspicious EKG: Non-specific Age: < 45 Risk factors: 1-2 risk factors Troponin: < normal limit HEART Score: 2 - EKG Read Time Time EKG Completed: 22:50 EKG Read Time: 22:52 - Critical Actions Critical Actions: 0-3 pts:0.9-1.7%risk of adverse cardiac event.Candidate for discharge ED Review of Systems ROS: Stated complaint: CHEST PAIN Other details as noted in HPI Constitutional: denies: chills, fever Eyes: denies: eye pain, eye discharge, vision change ENT: denies: ear pain, throat pain Respiratory: denies: cough, shortness of breath, wheezing Cardiovascular: denies: chest pain, palpitations Endocrine: no symptoms reported Gastrointestinal: as per HPI. denies: abdominal pain, nausea, diarrhea Genitourinary: denies: urgency, dysuria, abnormal menses Musculoskeletal: denies: back pain, arthralgia Skin: denies: rash, lesions Neurological: denies: headache, weakness, paresthesias Psychiatric: denies: anxiety, depression Hematological/Lymphatic: denies: easy bleeding, easy bruising ED Past Medical Hx - Past Medical History Previous Medical History?: Yes Hx Hypertension: Yes Additional medical history: Morbid Obesity - Surgical History Past Surgical History?: Yes Additional Surgical History: c-sec/ HAND - Social History Smoking Status: Never Smoker Substance Use Type: None - Medications Home Medications: Home Medications Medication Instructions Recorded Confirmed Last Taken Type Ibuprofen [Motrin] 800 mg PO Q8HR #30 tablet 09/21/18 Unknown Rx Acetaminophen [Tylenol Extra 1,000 mg PO QID PRN #30 tablet 12/11/18 Unknown Rx Strength] Metoclopramide [Reglan] 10 mg PO Q6H PRN #30 tablet 12/11/18 Unknown Rx diphenhydrAMINE [Benadryl CAP] 25 mg PO Q6HR PRN #30 capsule 12/11/18 Unknown Rx predniSONE [Deltasone] 40 mg PO QDAY 5 Days #10 tab 12/11/18 Unknown Rx Naproxen [Naprosyn] 500 mg PO BID PRN #20 tablet 06/10/19 Unknown Rx cephALEXin [Keflex] 500 mg PO Q6HR #28 capsule 06/10/19 Unknown Rx Menthol/Camphor [[place] 1 applicatio TP QID PRN #1 tube 07/19/19 Unknown Rx Ointment] Naproxen 500 mg PO BID PRN #30 tablet 07/19/19 Unknown Rx Docusate Sodium [Colace] 100 mg PO BID PRN #20 capsule 08/02/19 Unknown Rx Nitrofurantoin [place]/M-Cryst 100 mg PO Q12HR #10 capsule 08/02/19 Unknown Rx [Macrobid CAP] Ondansetron [Zofran Odt] 4 mg PO Q8HR PRN #20 tab.rapdis 08/02/19 Unknown Rx Pantoprazole [Protonix TAB] 40 mg PO QDAY #20 tablet.dr 08/02/19 Unknown Rx traMADoL [Ultram 50 MG tab] 50 mg PO Q6HR PRN #20 tablet 08/02/19 Unknown Rx Erythromycin [Erythromycin Ophth 1 applic OU 6XD 7 Days #3.5 gm 03/14/20 Unknown Rx Oint] lisinopriL [Zestril TAB] 20 mg PO QDAY #30 tablet 10/13/20 Unknown Rx amLODIPine 10 mg PO DAILY #30 tab 10/30/20 Unknown Rx Lansoprazole 30 mg PO QDAY #30 capsule. 12/11/20 Unknown Rx ED Physical Exam - General Limitations: Physical Limitation General appearance: obese - Head Head exam: Present: atraumatic, normocephalic - Eye Eye exam: Present: normal appearance. Absent: scleral icterus - ENT ENT exam: Present: mucous membranes moist - Neck Neck exam: Present: normal inspection - Respiratory Respiratory exam: Present: normal lung sounds bilaterally. Absent: respiratory distress - Cardiovascular Cardiovascular Exam: Present: regular rate, normal rhythm. Absent: systolic murmur, diastolic murmur, rubs, gallop - GI/Abdominal GI/Abdominal exam: Present: soft, normal bowel sounds. Absent: distended, tende rness, guarding, rebound, rigid - Extremities Exam Extremities exam: Present: normal inspection. Absent: joint swelling, calf tenderness - Back Exam Back exam: Present: normal inspection - Neurological Exam Neurological exam: Present: alert, oriented X3, CN II-XII intact. Absent: motor sensory deficit - Psychiatric Psychiatric exam: Present: normal affect, normal mood - Skin Skin exam: Present: warm, dry, intact, normal color. Absent: rash ED Course Vital Signs 12/10/20 12/11/20 22:55 07:31 Temperature 98.4 F 99.1 F Pulse Rate 78 73 Respiratory 18 18 Rate Blood Pressure 158/89 Blood Pressure 131/63 [Left] O2 Sat by Pulse 100 100 Oximetry ED Medical Decision Making - Lab Data Result diagrams: 12/10/20 23:04 12/10/20 23:04 Laboratory Results - last 24 hr 12/10/20 12/10/20 12/10/20 23:04 23:04 23:04 WBC 8.3 RBC 4.36 Hgb 14.0 Hct 41.4 MCV 95 MCH 32 MCHC 34 RDW 14.8 Plt Count 275 Lymph % (Auto) 35.9 H [place] % (Auto) 6.6 Eos % (Auto) 1.8 Baso % (Auto) 0.4 Lymph # (Auto) 3.0 [place] # (Auto) 0.5 Eos # (Auto) 0.2 Baso # (Auto) 0.0 Seg Neutrophils % 55.3 Seg Neutrophils # 4.6 Sodium 141 Potassium 3.4 L Chloride 100.5 Carbon Dioxide 32 H Anion Gap 12 BUN 7 Creatinine 0.7 Estimated GFR > 60 BUN/Creatinine Ratio 10 Glucose 96 Calcium 9.3 Total Bilirubin 0.70 AST 158 H ALT 194 H Alkaline Phosphatase 86 Troponin T Total Protein 7.1 Albumin 4.3 Albumin/Globulin Ratio 1.5 HCG, Qual Negative 12/11/20 01:59 WBC RBC Hgb Hct MCV MCH MCHC RDW Plt Count Lymph % (Auto) [place] % (Auto) Eos % (Auto) Baso % (Auto) Lymph # (Auto) [place] # (Auto) Eos # (Auto) Baso # (Auto) Seg Neutrophils % Seg Neutrophils # Sodium Potassium Chloride Carbon Dioxide Anion Gap BUN Creatinine Estimated GFR BUN/Creatinine Ratio Glucose Calcium Total Bilirubin AST ALT Alkaline Phosphatase Troponin T < 0.010 Total Protein Albumin Albumin/Globulin Ratio HCG, Qual - EKG Data -: EKG Interpreted by [place] EKG shows normal: sinus rhythm, axis, intervals, QRS complexes, ST-T waves Rate: normal - EKG Data Interpretation: nonspecific ST-T wave emilee, other (1 PVC) - Radiology Data Radiology results: report reviewed (Chest x-ray no acute process) - Medical Decision Making Patient did have mildly elevated transaminases. This perhaps increases the possibility of biliary colic. However the patient is totally empty asymptomatic at this time. I do not think she requires further medical screening. She has an GI for further evaluation. Return instructions were given. Critical care attestation.: If time is entered above; I have spent that time in minutes in the direct care of this critically ill patient, excluding procedure time. ED Disposition Clinical Impression: Esophagitis, Elevated transaminase level Disposition: DC-01 TO HOME OR SELFCARE Is pt being admited?: No Does the pt Need Aspirin: No Condition: Stable Instructions: Esophagitis Additional Instructions: Follow-up with your GI doctor. Your liver tests were slightly elevated today. They should recheck this. Return to the emergency department should you have worsening symptoms or any acute change. Rx lansoprazole. Prescriptions: Lansoprazole 30 mg PO QDAY #30 capsule. Referrals: [facility] [Provider Group] - 3-5 Days [facility] [Primary Care Provider] - 2-3 Days Forms: Work/School Release Form(ED) Time of Disposition: 09:14
[2020-12-11 09:46] VITALS: BP 132/68
== END 2020-12-11 09:45 | disposition home or self-care (01) ==
LOC: ED 21:10
DX: K20.90 Esophagitis, unspecified without bleeding (principal); R74.01 Elevation of levels of liver transaminase levels; I10 Essential (primary) hypertension; E66.01 Morbid (severe) obesity due to excess calories; Z79.899 Other long term (current) drug therapy; Z91.040 Latex allergy status; Z98.890 Other specified postprocedural states; Z68.44 Body mass index [BMI] 60.0-69.9, adult
CPT/HCPCS: 36415; 71046; 80053; 84484; 84703; 85025; 93005

== ENCOUNTER 2021-02-27 10:35 | Emergency (ER) | payer SELFPAY ==
[2021-02-27] MEDS ORDERED: BUTALB/ACETAMINOPHEN/CAFFEINE TAB PO ONE (12:19)
[2021-02-27] MEDS ORDERED: CYCLOBENZAPRINE 10 MG TAB PO ONE (12:19)
[2021-02-27] MEDS ORDERED: amLODIPine 5 MG TAB PO ONE (12:19)
--- NOTE | 2021-02-27 12:24 | Emergency Department Report ---
ED Headache HPI - General Chief Complaint: Headache Stated Complaint: HEADACHE X 3 DAYS Time Seen by Provider: 02/27/21 12:17 - History of Present Illness Initial Comments: Patient is a 40-year-old female presents emergency room with complaints of a headache that began 3 days ago. She states that the headache is in the occipital region and in her neck. She states that it feels like muscle tension. She states that she has had headaches similar to this in the past and it feels the same. She denies any fall or injury. She denies any vision changes, numbness, weakness, bowel or bladder incontinence, fever, nausea, vomiting, diarrhea, neck stiffness. She is able to fully move her neck without any difficulty. Past medical history of hypertension and states that she did not take her blood pressure medication today, she states that she takes 10 mg of amlodipine daily. No allergies to medications. Allergies/Adverse Reactions: Allergies latex Allergy (Verified 10/30/20 15:50) Itching Home Medications: Ambulatory Orders Ibuprofen [Motrin] 800 mg PO Q8HR #30 tablet 09/21/18 Acetaminophen [Tylenol Extra Strength] 1,000 mg PO QID PRN #30 tablet 12/11/18 Metoclopramide [Reglan] 10 mg PO Q6H PRN #30 tablet 12/11/18 diphenhydrAMINE [Benadryl CAP] 25 mg PO Q6HR PRN #30 capsule 12/11/18 predniSONE [Deltasone] 40 mg PO QDAY 5 Days #10 tab 12/11/18 Naproxen [Naprosyn] 500 mg PO BID PRN #20 tablet 06/10/19 cephALEXin [Keflex] 500 mg PO Q6HR #28 capsule 06/10/19 Menthol/Camphor [[place] Ointment] 1 applicatio TP QID PRN #1 tube 07/19/19 Naproxen 500 mg PO BID PRN #30 tablet 07/19/19 Docusate Sodium [Colace] 100 mg PO BID PRN #20 capsule 08/02/19 Nitrofurantoin [place]/M-Cryst [Macrobid CAP] 100 mg PO Q12HR #10 capsule 08/02/19 Ondansetron [Zofran Odt] 4 mg PO Q8HR PRN #20 tab.rapdis 08/02/19 Pantoprazole [Protonix TAB] 40 mg PO QDAY #20 tablet. 08/02/19 traMADoL [Ultram 50 MG tab] 50 mg PO Q6HR PRN #20 tablet 08/02/19 Erythromycin [Erythromycin Ophth Oint] 1 applic OU 6XD 7 Days #3.5 gm 03/14/20 lisinopriL [Zestril TAB] 20 mg PO QDAY #30 tablet 10/13/20 amLODIPine 10 mg PO DAILY #30 tab 10/30/20 Lansoprazole 30 mg PO QDAY #30 capsule. 12/11/20 Butalb/Acetaminophen/Caffeine [Fioricet 50-300-40 mg CAP] 1 cap PO Q8HR PRN #10 cap 02/27/21 methOCARBAMOL [Robaxin TAB] 500 mg PO BID PRN #20 tab 02/27/21 ED Review of Systems ROS: Stated complaint: HEADACHE X 3 DAYS Other details as noted in HPI Comment: All other systems reviewed and negative ED Past Medical Hx - Past Medical History Previous Medical History?: Yes Hx Hypertension: Yes Additional medical history: Morbid Obesity - Surgical History Past Surgical History?: Yes Additional Surgical History: c-sec/ HAND - Social History Smoking Status: Current Every Day Smoker Substance Use Type: Alcohol, Marijuana - Medications Home Medications: Home Medications Medication Instructions Recorded Confirmed Last Taken Type Ibuprofen [Motrin] 800 mg PO Q8HR #30 tablet 09/21/18 Unknown Rx Acetaminophen [Tylenol Extra 1,000 mg PO QID PRN #30 tablet 12/11/18 Unknown Rx Strength] Metoclopramide [Reglan] 10 mg PO Q6H PRN #30 tablet 12/11/18 Unknown Rx diphenhydrAMINE [Benadryl CAP] 25 mg PO Q6HR PRN #30 capsule 12/11/18 Unknown Rx predniSONE [Deltasone] 40 mg PO QDAY 5 Days #10 tab 12/11/18 Unknown Rx Naproxen [Naprosyn] 500 mg PO BID PRN #20 tablet 06/10/19 Unknown Rx cephALEXin [Keflex] 500 mg PO Q6HR #28 capsule 06/10/19 Unknown Rx Menthol/Camphor [[place] 1 applicatio TP QID PRN #1 tube 07/19/19 Unknown Rx Ointment] Naproxen 500 mg PO BID PRN #30 tablet 07/19/19 Unknown Rx Docusate Sodium [Colace] 100 mg PO BID PRN #20 capsule 08/02/19 Unknown Rx Nitrofurantoin [place]/M-Cryst 100 mg PO Q12HR #10 capsule 08/02/19 Unknown Rx [Macrobid CAP] Ondansetron [Zofran Odt] 4 mg PO Q8HR PRN #20 tab.rapdis 08/02/19 Unknown Rx Pantoprazole [Protonix TAB] 40 mg PO QDAY #20 tablet. 08/02/19 Unknown Rx traMADoL [Ultram 50 MG tab] 50 mg PO Q6HR PRN #20 tablet 08/02/19 Unknown Rx Erythromycin [Erythromycin Ophth 1 applic OU 6XD 7 Days #3.5 gm 03/14/20 Unknown Rx Oint] lisinopriL [Zestril TAB] 20 mg PO QDAY #30 tablet 10/13/20 Unknown Rx amLODIPine 10 mg PO DAILY #30 tab 10/30/20 Unknown Rx Lansoprazole 30 mg PO QDAY #30 capsule. 12/11/20 Unknown Rx Butalb/Acetaminophen/Caffeine 1 cap PO Q8HR PRN #10 cap 02/27/21 Unknown Rx [Fioricet 50-300-40 mg CAP] methOCARBAMOL [Robaxin TAB] 500 mg PO BID PRN #20 tab 02/27/21 Unknown Rx ED Physical Exam - General Limitations: No Limitations General appearance: alert, in no apparent distress - Head Head exam: Present: atraumatic, normocephalic - Eye Eye exam: Present: normal appearance, PERRL, EOMI. Absent: nystagmus, periorbital swelling, periorbital tenderness - ENT ENT exam: Present: mucous membranes moist - Neck Neck exam: Present: normal inspection, full ROM. Absent: tenderness, meningismus - Respiratory Respiratory exam: Present: normal lung sounds bilaterally. Absent: respiratory distress, wheezes, rales, rhonchi, stridor, chest wall tenderness, accessory muscle use, decreased breath sounds, prolonged expiratory - Cardiovascular Cardiovascular Exam: Present: regular rate, normal rhythm, normal heart sounds. Absent: systolic murmur, diastolic murmur, rubs, gallop - Back Exam Back exam: Present: normal inspection, full ROM. Absent: paraspinal tenderness, vertebral tenderness - Neurological Exam Neurological exam: Present: alert, oriented X3, CN II-XII intact, normal gait. Absent: motor sensory deficit - Psychiatric Psychiatric exam: Present: normal affect, normal mood - Skin Skin exam: Present: warm, dry, intact ED Course Vital Signs 02/27/21 02/27/21 02/27/21 11:57 12:35 13:21 Temperature 98.7 F Pulse Rate 82 84 77 Respiratory 20 18 Rate Blood Pressure 171/101 171/101 Blood Pressure 163/101 [Right] O2 Sat by Pulse 98 100 Oximetry ED Medical Decision Making - Lab Data Vital Signs 02/27/21 02/27/21 02/27/21 11:57 12:35 13:21 Temperature 98.7 F Pulse Rate 82 84 77 Respiratory 20 18 Rate Blood Pressure 171/101 171/101 Blood Pressure 163/101 [Right] O2 Sat by Pulse 98 100 Oximetry - Medical Decision Making Patient is a 40-year-old female presents emergency room with complaints of a headache that began 3 days ago. She states that the headache is in the occipital region and in her neck. She states that it feels like muscle tension. She states that she has had headaches similar to this in the past and it feels the same. She denies any fall or injury. She denies any vision changes, numbness, weakness, bowel or bladder incontinence, fever, nausea, vomiting, diarrhea, neck stiffness. She is able to fully move her neck without any difficulty. Past medical history of hypertension and states that she did not take her blood pressure medication today, she states that she takes 10 mg of amlodipine daily. No allergies to medications. Vitals with elevated blood pressure, patient has not taken her blood pressure medication. Patient has no neurological deficits on exam, no meningeal signs. She has had no trauma, she has no fever, she has full range of motion of her neck, she has no neurological deficits, she is ambulating without difficulty. Symptoms and examination appear most consistent with tension headache. Patient given medications while in the emergency department with improvement of her symptoms. There was mild improvement of her blood pressure with her home medication, discussed keeping a blood pressure log, discussed lifestyle modifications, discussed the importance of primary care follow-up. Discussed return precautions with patient. Advised patient Please take medication as prescribed as needed. Do not drive or operate machinery when taking muscle ask Robaxin. Increase your fluid intake. Eat a low-sodium/low salt diet. Please take your blood pressure medication as prescribed by your doctor. Incorporate 30 to 60 minutes of daily exercise. Keep a blood pressure log and take this with your primary care doctor. Follow- up with your primary care doctor. Return to emergency room for new or worsening symptoms. Critical care attestation.: If time is entered above; I have spent that time in minutes in the direct care of this critically ill patient, excluding procedure time. ED Disposition Clinical Impression: Elevated blood pressure reading Headache Qualifiers: Headache type: tension-type Headache chronicity pattern: acute headache Intractability: not intractable Qualified Code(s): G44.209 - Tension-type headache, unspecified, not intractable Disposition: DC-01 TO HOME OR SELFCARE Is pt being admited?: No Does the pt Need Aspirin: No Condition: Stable Instructions: Tension Headache, Adult, Managing Your Hypertension Additional Instructions: Please take medication as prescribed as needed. Do not drive or operate machinery when taking muscle ask Robaxin. Increase your fluid intake. Eat a low-sodium/low salt diet. Please take your blood pressure medication as prescribed by your doctor. Incorporate 30 to 60 minutes of daily exercise. Keep a blood pressure log and take this with your primary care doctor. Follow- up with your primary care doctor. Return to emergency room for new or worsening symptoms. Prescriptions: Butalb/Acetaminophen/Caffeine [Fioricet 50-300-40 mg CAP] 1 cap PO Q8HR PRN #10 cap PRN Reason: headache methOCARBAMOL [Robaxin TAB] 500 mg PO BID PRN #20 tab PRN Reason: muscle spasm/pain Referrals: JOURDAN BOSS MD [Staff Physician] - 3-5 Days [facility] [Provider Group] - 3-5 Days CHRISTIAN ACOSTA MD [Staff Physician] - 3-5 Days Forms: Work/School Release Form(ED) Time of Disposition: 13:16 Print Language: [id number]
[2021-02-27 13:22] VITALS: BP 163/101
== END 2021-02-27 13:30 | disposition home or self-care (01) ==
LOC: ED 10:35
DX: R03.0 Elevated blood-pressure reading, without diagnosis of hypertension (principal); R51.9 Headache, unspecified; I10 Essential (primary) hypertension; F17.200 Nicotine dependence, unspecified, uncomplicated; F12.90 Cannabis use, unspecified, uncomplicated; Z72.89 Other problems related to lifestyle; E66.8 Other obesity; Z98.890 Other specified postprocedural states; Z91.040 Latex allergy status
CPT/HCPCS: 99282

== ENCOUNTER 2021-03-19 11:26 | Emergency (ER) | payer BC ==
[2021-03-19 12:31] VITALS: BP 134/77
--- NOTE | 2021-03-19 13:02 | Emergency Department Report ---
ED Female HPI - General Chief complaint: Vaginal Bleeding Stated complaint: PASSING BLOOD CLOTS Time Seen by Provider: 03/19/21 12:40 Source: patient Mode of arrival: Ambulatory Limitations: No Limitations - History of Present Illness Initial comments: Patient is a 40-year-old female who presents emergency room complaints of irregular vaginal bleeding. She states back in December she was placed on oral contraceptives due to irregular cycles by [facility]. She states that in January she did not have a regular cycle, she states that she only had 1 day of vaginal spotting. She states that at the end of February she began having vaginal bleeding and has been having clots and she states that she has been bleeding since then. She states that she stopped the control approximately 2 weeks ago. she states that the bleeding began shortly after that. She states that she has to change her pad approximately every hour or 2. She states initially she was having cramping but that has completely resolved and she has no abdominal pain. She denies any fever, nausea, vomiting, diarrhea, urinary symptoms, back pain, abnormal vaginal discharge. Past medical history of hypertension. Allergy to latex. - Related Data Previous Rx's Medication Instructions Recorded Last Taken Type Ibuprofen [Motrin] 800 mg PO Q8HR #30 tablet 09/21/18 Unknown Rx Acetaminophen [Tylenol Extra 1,000 mg PO QID PRN #30 tablet 12/11/18 Unknown Rx Strength] Metoclopramide [Reglan] 10 mg PO Q6H PRN #30 tablet 12/11/18 Unknown Rx diphenhydrAMINE [Benadryl CAP] 25 mg PO Q6HR PRN #30 capsule 12/11/18 Unknown Rx predniSONE [Deltasone] 40 mg PO QDAY 5 Days #10 tab 12/11/18 Unknown Rx Naproxen [Naprosyn] 500 mg PO BID PRN #20 tablet 06/10/19 Unknown Rx cephALEXin [Keflex] 500 mg PO Q6HR #28 capsule 06/10/19 Unknown Rx Menthol/Camphor [[place] 1 applicatio TP QID PRN #1 tube 07/19/19 Unknown Rx Ointment] Naproxen 500 mg PO BID PRN #30 tablet 07/19/19 Unknown Rx Docusate Sodium [Colace] 100 mg PO BID PRN #20 capsule 08/02/19 Unknown Rx Nitrofurantoin [place]/M-Cryst 100 mg PO Q12HR #10 capsule 08/02/19 Unknown Rx [Macrobid CAP] Ondansetron [Zofran Odt] 4 mg PO Q8HR PRN #20 tab.rapdis 08/02/19 Unknown Rx Pantoprazole [Protonix TAB] 40 mg PO QDAY #20 tablet. 08/02/19 Unknown Rx traMADoL [Ultram 50 MG tab] 50 mg PO Q6HR PRN #20 tablet 08/02/19 Unknown Rx Erythromycin [Erythromycin Ophth 1 applic OU 6XD 7 Days #3.5 gm 03/14/20 Unknown Rx Oint] lisinopriL [Zestril TAB] 20 mg PO QDAY #30 tablet 10/13/20 Unknown Rx amLODIPine 10 mg PO DAILY #30 tab 10/30/20 Unknown Rx Lansoprazole 30 mg PO QDAY #30 capsule. 12/11/20 Unknown Rx Butalb/Acetaminophen/Caffeine 1 cap PO Q8HR PRN #10 cap 02/27/21 Unknown Rx [Fioricet 50-300-40 mg CAP] methOCARBAMOL [Robaxin TAB] 500 mg PO BID PRN #20 tab 02/27/21 Unknown Rx medroxyPROGESTERone ACETATE 10 mg PO QDAY 10 Days #10 tablet 03/19/21 Unknown Rx [Provera] Allergies Allergy/AdvReac Type Severity Reaction Status Date / Time latex Allergy Itching Verified 10/30/20 15:50 ED Review of Systems ROS: Stated complaint: PASSING BLOOD CLOTS Other details as noted in HPI Comment: All other systems reviewed and negative ED Past Medical Hx - Past Medical History Previous Medical History?: Yes Hx Hypertension: Yes Additional medical history: Morbid Obesity - Surgical History Past Surgical History?: Yes Additional Surgical History: c-sec/ HAND - Social History Smoking Status: Current Every Day Smoker Substance Use Type: Alcohol, Marijuana - Medications Home Medications: Home Medications Medication Instructions Recorded Confirmed Last Taken Type Ibuprofen [Motrin] 800 mg PO Q8HR #30 tablet 09/21/18 Unknown Rx Acetaminophen [Tylenol Extra 1,000 mg PO QID PRN #30 tablet 12/11/18 Unknown Rx Strength] Metoclopramide [Reglan] 10 mg PO Q6H PRN #30 tablet 12/11/18 Unknown Rx diphenhydrAMINE [Benadryl CAP] 25 mg PO Q6HR PRN #30 capsule 12/11/18 Unknown Rx predniSONE [Deltasone] 40 mg PO QDAY 5 Days #10 tab 12/11/18 Unknown Rx Naproxen [Naprosyn] 500 mg PO BID PRN #20 tablet 06/10/19 Unknown Rx cephALEXin [Keflex] 500 mg PO Q6HR #28 capsule 06/10/19 Unknown Rx Menthol/Camphor [[place] 1 applicatio TP QID PRN #1 tube 07/19/19 Unknown Rx Ointment] Naproxen 500 mg PO BID PRN #30 tablet 07/19/19 Unknown Rx Docusate Sodium [Colace] 100 mg PO BID PRN #20 capsule 08/02/19 Unknown Rx Nitrofurantoin [place]/M-Cryst 100 mg PO Q12HR #10 capsule 08/02/19 Unknown Rx [Macrobid CAP] Ondansetron [Zofran Odt] 4 mg PO Q8HR PRN #20 tab.rapdis 08/02/19 Unknown Rx Pantoprazole [Protonix TAB] 40 mg PO QDAY #20 tablet. 08/02/19 Unknown Rx traMADoL [Ultram 50 MG tab] 50 mg PO Q6HR PRN #20 tablet 08/02/19 Unknown Rx Erythromycin [Erythromycin Ophth 1 applic OU 6XD 7 Days #3.5 gm 03/14/20 Unknown Rx Oint] lisinopriL [Zestril TAB] 20 mg PO QDAY #30 tablet 10/13/20 Unknown Rx amLODIPine 10 mg PO DAILY #30 tab 10/30/20 Unknown Rx Lansoprazole 30 mg PO QDAY #30 capsule. 12/11/20 Unknown Rx Butalb/Acetaminophen/Caffeine 1 cap PO Q8HR PRN #10 cap 02/27/21 Unknown Rx [Fioricet 50-300-40 mg CAP] methOCARBAMOL [Robaxin TAB] 500 mg PO BID PRN #20 tab 02/27/21 Unknown Rx medroxyPROGESTERone ACETATE 10 mg PO QDAY 10 Days #10 tablet 03/19/21 Unknown Rx [Provera] ED Physical Exam - General Limitations: No Limitations General appearance: alert, in no apparent distress - Head Head exam: Present: atraumatic, normocephalic - Eye Eye exam: Present: normal appearance - ENT ENT exam: Present: mucous membranes moist - Respiratory Respiratory exam: Present: normal lung sounds bilaterally. Absent: respiratory distress, wheezes, rales, rhonchi, stridor, chest wall tenderness, accessory muscle use, decreased breath sounds, prolonged expiratory - Cardiovascular Cardiovascular Exam: Present: regular rate, normal rhythm, normal heart sounds. Absent: systolic murmur, diastolic murmur, rubs, gallop - GI/Abdominal GI/Abdominal exam: Present: soft, normal bowel sounds. Absent: distended, tenderness, guarding, rebound, rigid - Neurological Exam Neurological exam: Present: alert, oriented X3 - Psychiatric Psychiatric exam: Present: normal affect, normal mood - Skin Skin exam: Present: warm, dry, intact ED Course Vital Signs 03/19/21 12:30 Temperature 99.2 F Pulse Rate 91 H Respiratory 18 Rate Blood Pressure 134/77 O2 Sat by Pulse 100 Oximetry ED Medical Decision Making - Lab Data Result diagrams: 03/19/21 13:10 03/19/21 13:10 Labs 03/19/21 03/19/21 03/19/21 13:10 13:10 13:10 WBC 9.9 RBC 3.99 Hgb 12.9 Hct 37.7 MCV 95 MCH 32 MCHC 34 RDW 15.0 Plt Count 239 Lymph % (Auto) 33.3 Burt % (Auto) 9.4 H Eos % (Auto) 2.9 Baso % (Auto) 0.8 Lymph # (Auto) 3.3 Burt # (Auto) 0.9 H Eos # (Auto) 0.3 Baso # (Auto) 0.1 Seg Neutrophils % 53.6 Seg Neutrophils # 5.3 Sodium 140 Potassium 3.8 Chloride 99.6 Carbon Dioxide 27 Anion Gap 17 BUN 9 Creatinine 0.7 Estimated GFR > 60 BUN/Creatinine Ratio 13 Glucose 114 H Calcium 9.4 Total Bilirubin < 0.20 AST 15 ALT 17 Alkaline Phosphatase 48 Total Protein 6.0 L Albumin 4.1 Albumin/Globulin Ratio 2.2 HCG, Quant < 2 Urine Color Urine Turbidity Urine pH Ur Specific [place] Urine Protein Urine Glucose (UA) Urine Ketones Urine Blood Urine Nitrite Urine Bilirubin Urine Urobilinogen Ur Leukocyte Esterase Urine WBC (Auto) Urine RBC (Auto) U Epithel Cells (Auto) Urine WBC Clumps Urine Mucus 03/19/21 Unknown WBC RBC Hgb Hct MCV MCH MCHC RDW Plt Count Lymph % (Auto) Burt % (Auto) Eos % (Auto) Baso % (Auto) Lymph # (Auto) Burt # (Auto) Eos # (Auto) Baso # (Auto) Seg Neutrophils % Seg Neutrophils # Sodium Potassium Chloride Carbon Dioxide Anion Gap BUN Creatinine Estimated GFR BUN/Creatinine Ratio Glucose Calcium Total Bilirubin AST ALT Alkaline Phosphatase Total Protein Albumin Albumin/Globulin Ratio HCG, Quant Urine Color Yellow Urine Turbidity Slightly-cloudy Urine pH 6.0 Ur Specific [place] 1.020 Urine Protein 30 mg/dl Urine Glucose (UA) Neg Urine Ketones Neg Urine Blood Lg Urine Nitrite Neg Urine Bilirubin Neg Urine Urobilinogen < 2.0 Ur Leukocyte Esterase Tr Urine WBC (Auto) 10.0 H Urine RBC (Auto) > 182.0 U Epithel Cells (Auto) 10.0 Urine WBC Clumps Few Urine Mucus Few - Medical Decision Making Patient is a 40-year-old female who presents emergency room complaints of irregular vaginal bleeding. She states back in December she was placed on oral contraceptives due to irregular cycles by [facility] M[employer]IN[employer]. She states that in January she did not have a regular cycle, she states that she only had 1 day of vaginal spotting. She states that at the end of February she began having vaginal bleeding and has been having clots and she states that she has been bleeding since then. She states that she stopped the control approximately 2 weeks ago. she states that the bleeding began shortly after that. She states that she has to change her pad approximately every hour or 2. She states initially she was having cramping but that has completely resolved a nd she has no abdominal pain. She denies any fever, nausea, vomiting, diarrhea, urinary symptoms, back pain, abnormal vaginal discharge. Past medical history of hypertension. Allergy to latex. vss. No abdominal tenderness on exam, no guarding, no rebound, no rigidity, no peritoneal signs, normal bowel sounds. Labs are stable. H&H is normal. hCG quant is less than 2. UA shows many red blood cells, there is a small amount of white blood cells, patient is not having urinary symptoms, do not suspect UTI, patient is not having any symptoms, I believe this is likely due to contamination. Patient will be given prescription for Provera. Discussed the importance of MILLINERY WORKER follow-up for abnormal uterine bleeding. Advised patient Please take medication as prescribed. Increase your fluid intake. Follow-up with your MILLINERY WORKER. Do not smoke while taking this medication. Return to emergency room for any new or worsening symptoms. Critical care attestation.: If time is entered above; I have spent that time in minutes in the direct care of this critically ill patient, excluding procedure time. ED Disposition Clinical Impression: Abnormal uterine bleeding (AUB) Disposition: - TO HOME OR SELFCARE Is pt being admited?: No Does the pt Need Aspirin: No Condition: Stable Instructions: Abnormal Uterine Bleeding Additional Instructions: Please take medication as prescribed. Increase your fluid intake. Follow-up with your MILLINERY WORKER. Do not smoke while taking this medication. Return to emergency room for any new or worsening symptoms. Prescriptions: medroxyPROGESTERone ACETATE [Provera] 10 mg PO QDAY 10 Days #10 tablet Referrals: [facility] [Provider Group] - 2-3 Days Forms: Work/School Release Form(ED) Time of Disposition: 13:59 Print Language: TUNISIAN
[2021-03-19 13:21] LABS: Bilirubin,Urine NEG (Negative); Blood,Urine LG (Negative); Color,Urine Yellow (Yellow); Mucus,Urine FEW /HPF; Urobilinogen,Urine < 2.0 mg/dL (<2.0)
[2021-03-19 13:21] LABS: Basophils # (Auto) 0.1 K/mm3 (0.0-0.1); Basophils % (Auto) 0.8 % (0.0-1.8); Eosinophils # (Auto) 0.3 K/mm3 (0.0-0.4); Eosinophils % (Auto) 2.9 % (0.0-4.3); Hematocrit 37.7 % (30.3-42.9); Hemoglobin 12.9 gm/dl (10.1-14.3); Lymphocytes # (Auto) 3.3 K/mm3 (1.2-5.4); Lymphocytes % (Auto) 33.3 % (13.4-35.0); Mean Corpuscular HGB Conc 34 % (30-34); Mean Corpuscular Volume 95 fl (79-97); Monocytes # (Auto) 0.9 K/mm3 (0.0-0.8); Monocytes % (Auto) 9.4 % (0.0-7.3); Platelet Count 239 K/mm3 (140-440); Red Blood Count 3.99 M/mm3 (3.65-5.03)
[2021-03-19 13:31] LABS: RBC,Urine > 182.0 /HPF (0.0-6.0)
[2021-03-19 13:41] LABS: Alanine Aminotransferase 17 units/L (7-56); Albumin 4.1 g/dL (3.9-5); Blood Urea Nitrogen 9 mg/dL (7-17); Calcium 9.4 mg/dL (8.4-10.2); Hemolysis Index 7
[2021-03-19 13:46] LABS: BUN/Creatinine Ratio 13
== END 2021-03-19 14:20 | disposition home or self-care (01) ==
LOC: ED 11:26
DX: N93.9 Abnormal uterine and vaginal bleeding, unspecified (principal); I10 Essential (primary) hypertension; F17.200 Nicotine dependence, unspecified, uncomplicated; F12.10 Cannabis abuse, uncomplicated; Z98.890 Other specified postprocedural states; Z79.899 Other long term (current) drug therapy; Z91.040 Latex allergy status
CPT/HCPCS: 36415; 80053; 81001; 84702; 85025; 87086

== ENCOUNTER 2021-06-03 23:47 | Emergency (ER) | payer BC ==
[2021-06-04 03:02] VITALS: BP 148/99
[2021-06-04] MEDS ORDERED: ONDANSETRON 4 MG ODT TAB PO ONE (03:02)
--- NOTE | 2021-06-04 03:07 | Emergency Department Report ---
ED N/V/D HPI - General Chief complaint: Abdominal Pain Stated complaint: NAUSEATED PUI?: No Source: patient Mode of arrival: Ambulatory Limitations: No Limitations - History of Present Illness Initial comments: Patient is a 40-year-old -Citizen Of [place] female with a history of hypertension and obesity who presents to the ED with complaint of acute onset persistent nausea for the last 2 hours after eating chips has worsened in the last 4 hours. Patient states that she has not been able to eat anything because of persistent nausea. Patient denies fever, chills, vomiting, abdominal pain, diarrhea, chest pain or shortness of breath, sore throat, dysuria, urinary frequency and urgency, vaginal bleeding, vaginal discharge, low back pain, heavy lifting or headache. MD complaint: nausea -: Sudden, hour(s) (2) Description of Vomiting: food contents Associated Abdominal Pain: No Location: diffuse Radiation: none Severity: mild Pain Scale: 0 Quality: dull Consistency: intermittent Improves with: eating Worsens with: none Context: possible food poisoning Associated Symptoms: denies other symptoms. denies: myalgias, chest pain, cough, diaphoresis, fever/chills, headaches, loss of appetite, malaise, nausea/vomiting, rash, shortness of breath, syncope, weakness - Related Data Previous Rx's Medication Instructions Recorded Last Taken Type Ibuprofen [Motrin] 800 mg PO Q8HR #30 tablet 09/21/18 Unknown Rx Acetaminophen [Tylenol Extra 1,000 mg PO QID PRN #30 tablet 12/11/18 Unknown Rx Strength] Metoclopramide [Reglan] 10 mg PO Q6H PRN #30 tablet 12/11/18 Unknown Rx diphenhydrAMINE [Benadryl CAP] 25 mg PO Q6HR PRN #30 capsule 12/11/18 Unknown Rx predniSONE [Deltasone] 40 mg PO QDAY 5 Days #10 tab 12/11/18 Unknown Rx Naproxen [Naprosyn] 500 mg PO BID PRN #20 tablet 06/10/19 Unknown Rx cephALEXin [Keflex] 500 mg PO Q6HR #28 capsule 06/10/19 Unknown Rx Menthol/Camphor [[place] 1 applicatio TP QID PRN #1 tube 07/19/19 Unknown Rx Ointment] Naproxen 500 mg PO BID PRN #30 tablet 07/19/19 Unknown Rx Docusate Sodium [Colace] 100 mg PO BID PRN #20 capsule 08/02/19 Unknown Rx Nitrofurantoin [place]/M-Cryst 100 mg PO Q12HR #10 capsule 08/02/19 Unknown Rx [Macrobid CAP] Ondansetron [Zofran Odt] 4 mg PO Q8HR PRN #20 tab.rapdis 08/02/19 Unknown Rx Pantoprazole [Protonix TAB] 40 mg PO QDAY #20 tablet. 08/02/19 Unknown Rx traMADoL [Ultram 50 MG tab] 50 mg PO Q6HR PRN #20 tablet 08/02/19 Unknown Rx Erythromycin [Erythromycin Ophth 1 applic OU 6XD 7 Days #3.5 gm 03/14/20 Unknown Rx Oint] lisinopriL [Zestril TAB] 20 mg PO QDAY #30 tablet 10/13/20 Unknown Rx amLODIPine 10 mg PO DAILY #30 tab 10/30/20 Unknown Rx Lansoprazole 30 mg PO QDAY #30 capsule. 12/11/20 Unknown Rx Butalb/Acetaminophen/Caffeine 1 cap PO Q8HR PRN #10 cap 02/27/21 Unknown Rx [Fioricet 50-300-40 mg CAP] methOCARBAMOL [Robaxin TAB] 500 mg PO BID PRN #20 tab 02/27/21 Unknown Rx medroxyPROGESTERone ACETATE 10 mg PO QDAY 10 Days #10 tablet 03/19/21 Unknown Rx [Provera] Famotidine [Pepcid] 20 mg PO BID #60 tablet 06/04/21 Unknown Rx Ondansetron [Zofran Odt] 4 mg PO Q8HR PRN #15 tab.rapdis 06/04/21 Unknown Rx Allergies Allergy/AdvReac Type Severity Reaction Status Date / Time latex Allergy Itching Verified 10/30/20 15:50 ED Review of Systems ROS: Stated complaint: NAUSEATED Other details as noted in HPI Constitutional: denies: chills, fever Eyes: denies: eye pain, eye discharge, vision change ENT: denies: ear pain, throat pain Respiratory: denies: cough, shortness of breath, wheezing Cardiovascular: denies: chest pain, palpitations Endocrine: no symptoms reported Gastrointestinal: nausea. denies: abdominal pain, diarrhea Genitourinary: denies: urgency, dysuria, discharge Musculoskeletal: denies: back pain, joint swelling, arthralgia Skin: denies: rash, lesions Neurological: denies: headache, weakness, paresthesias Psychiatric: denies: anxiety, depression Hematological/Lymphatic: denies: easy bleeding, easy bruising ED Past Medical Hx - Past Medical History Hx Hypertension: Yes Additional medical history: Morbid Obesity - Surgical History Additional Surgical History: c-sec/ HAND - Social History Smoking Status: Current Every Day Smoker Substance Use Type: Alcohol, Marijuana - Medications Home Medications: Home Medications Medication Instructions Recorded Confirmed Last Taken Type Ibuprofen [Motrin] 800 mg PO Q8HR #30 tablet 09/21/18 Unknown Rx Acetaminophen [Tylenol Extra 1,000 mg PO QID PRN #30 tablet 12/11/18 Unknown Rx Strength] Metoclopramide [Reglan] 10 mg PO Q6H PRN #30 tablet 12/11/18 Unknown Rx diphenhydrAMINE [Benadryl CAP] 25 mg PO Q6HR PRN #30 capsule 12/11/18 Unknown Rx predniSONE [Deltasone] 40 mg PO QDAY 5 Days #10 tab 12/11/18 Unknown Rx Naproxen [Naprosyn] 500 mg PO BID PRN #20 tablet 06/10/19 Unknown Rx cephALEXin [Keflex] 500 mg PO Q6HR #28 capsule 06/10/19 Unknown Rx Menthol/Camphor [[place] 1 applicatio TP QID PRN #1 tube 07/19/19 Unknown Rx Ointment] Naproxen 500 mg PO BID PRN #30 tablet 07/19/19 Unknown Rx Docusate Sodium [Colace] 100 mg PO BID PRN #20 capsule 08/02/19 Unknown Rx Nitrofurantoin [place]/M-Cryst 100 mg PO Q12HR #10 capsule 08/02/19 Unknown Rx [Macrobid CAP] Ondansetron [Zofran Odt] 4 mg PO Q8HR PRN #20 tab.rapdis 08/02/19 Unknown Rx Pantoprazole [Protonix TAB] 40 mg PO QDAY #20 tablet. 08/02/19 Unknown Rx traMADoL [Ultram 50 MG tab] 50 mg PO Q6HR PRN #20 tablet 08/02/19 Unknown Rx Erythromycin [Erythromycin Ophth 1 applic OU 6XD 7 Days #3.5 gm 07/05/20 Unknown Rx Oint] lisinopriL [Zestril TAB] 20 mg PO QDAY #30 tablet 10/13/20 Unknown Rx amLODIPine 10 mg PO DAILY #30 tab 10/30/20 Unknown Rx Lansoprazole 30 mg PO QDAY #30 capsule. 12/11/20 Unknown Rx Butalb/Acetaminophen/Caffeine 1 cap PO Q8HR PRN #10 cap 02/27/21 Unknown Rx [Fioricet 50-300-40 mg CAP] methOCARBAMOL [Robaxin TAB] 500 mg PO BID PRN #20 tab 02/27/21 Unknown Rx medroxyPROGESTERone ACETATE 10 mg PO QDAY 10 Days #10 tablet 03/19/21 Unknown Rx [Provera] Famotidine [Pepcid] 20 mg PO BID #60 tablet 06/04/21 Unknown Rx Ondansetron [Zofran Odt] 4 mg PO Q8HR PRN #15 tab.rapdis 06/04/21 Unknown Rx ED Physical Exam - General Limitations: No Limitations General appearance: alert, in no apparent distress - Head Head exam: Present: atraumatic, normocephalic, normal inspection - Eye Eye exam: Present: normal appearance, PERRL, EOMI Pupils: Present: normal accommodation - ENT ENT exam: Present: normal exam, normal orophraynx, mucous membranes moist, TM's normal bilaterally, normal external ear exam - Neck Neck exam: Present: normal inspection, full ROM - Respiratory Respiratory exam: Present: normal lung sounds bilaterally. Absent: respiratory distress, wheezes, rales, rhonchi, chest wall tenderness, accessory muscle use, decreased breath sounds, prolonged expiratory - Cardiovascular Cardiovascular Exam: Present: regular rate, normal rhythm, normal heart sounds. Absent: systolic murmur, diastolic murmur, rubs, gallop - GI/Abdominal GI/Abdominal exam: Present: soft, normal bowel sounds. Absent: tenderness, guarding, rebound, hyperactive bowel sounds, hypoactive bowel sounds, organomegaly - Extremities Exam Extremities exam: Present: normal inspection, full ROM, normal capillary refill - Back Exam Back exam: Present: normal inspection, full ROM. Absent: tenderness, CVA tenderness (R), CVA tenderness (L), muscle spasm, paraspinal tenderness, vertebral tenderness - Neurological Exam Neurological exam: Present: alert, oriented X3, CN II-XII intact, normal gait, reflexes normal - Psychiatric Psychiatric exam: Present: normal affect, normal mood - Skin Skin exam: Present: warm, dry, intact, normal color. Absent: rash ED Course Vital Signs 06/04/21 06/04/21 03:01 03:02 Temperature 98.0 F Pulse Rate 80 Respiratory 16 Rate Blood Pressure 148/99 [Left] O2 Sat by Pulse 100 Oximetry ED Medical Decision Making - Medical Decision Making This is a 40-year-old -Citizen Of [place] female with a history of hypertension and obesity who presents to the ED with complaint of acute onset persistent nausea for the last 2 hours after eating chips has worsened in the last 4 hours. Patient states that she has not been able to eat anything because of persistent nausea. In the ED, patient is alert and oriented x3 and is not in any distress. Patient is hemodynamically stable. Patient was treated for nausea in the ED and discharged home on antiemetics and antacids. Patient was advised to follow- up with her primary care physician in 5 to 7 days for reevaluation or return to the ED immediately if symptoms get worse. - Differential Diagnosis Gastroenteritis; GERD; Critical care attestation.: If time is entered above; I have spent that time in minutes in the direct care of this critically ill patient, excluding procedure time. ED Disposition Clinical Impression: Nausea without vomiting GERD (gastroesophageal reflux disease) Qualifiers: Esophagitis presence: esophagitis presence not specified Qualified Code(s): K21.9 - Gastro-esophageal reflux disease without esophagitis Disposition: 01 HOME / SELF CARE / HOMELESS Is pt being admited?: No Does the pt Need Aspirin: No Condition: Stable Instructions: Nausea, Adult, [id number], Abdominal Pain (ED) Additional Instructions: Take medication with food, drink plenty of fluids and follow-up with your primary care physician in 7 to 10 days for reevaluation. Return to the ED immediately if symptoms get worse. Prescriptions: Famotidine [Pepcid] 20 mg PO BID #60 tablet Ondansetron [Zofran Odt] 4 mg PO Q8HR PRN #15 tab.rapdis PRN Reason: Nausea Referrals: [facility] [Provider Group] - 3-5 Days Forms: Work/School Release Form(ED) Time of Disposition: 03:05 Print Language: [place]OT[place]
== END 2021-06-04 04:00 | disposition home or self-care (01) ==
LOC: ED 23:47
DX: K21.9 Gastro-esophageal reflux disease without esophagitis (principal); I10 Essential (primary) hypertension; E66.01 Morbid (severe) obesity due to excess calories; Z98.890 Other specified postprocedural states; F17.290 Nicotine dependence, other tobacco product, uncomplicated; Z91.040 Latex allergy status
CPT/HCPCS: 99282; Q0162

== ENCOUNTER 2021-07-01 09:39 | Emergency (ER) | payer BC ==
[2021-07-01 10:42] VITALS: BP 172/102
--- NOTE | 2021-07-01 10:43 | Emergency Department Report ---
Abscess Boil HPI - HPI Chief Complaint: Skin/Abscess/Foreign Body Stated Complaint: PAINFUL BOIL Time Seen by Provider: 07/01/21 10:24 Duration: 1 Day Location: Other (right inner proximal medial thigh) Severity: Severe History: Yes Pain HPI: 40-year-old female with a past medical history of hypertension presents to the ER today with complaints of abscess to right upper inner thigh. Patient states that the area started off small yesterday and has since gotten bigger and more painful. She states that she has been doing warm compresses without much relief. She states that she has had abscesses before and the need for left arm which needed I&D. She reports no history of MRSA. She denies any history of diabetes or any immunocompromising illnesses. She denies any fever or chills. Home Medications: Previous Rx's Medication Instructions Recorded Last Taken Type Metoclopramide [Reglan] 10 mg PO Q6H PRN #30 tablet 12/11/18 Unknown Rx Menthol/Camphor [[place] 1 applicatio TP QID PRN #1 tube 07/19/19 Unknown Rx Ointment] Nitrofurantoin [place]/M-Cryst 100 mg PO Q12HR #10 capsule 08/02/19 Unknown Rx [Macrobid CAP] lisinopriL [Zestril TAB] 20 mg PO QDAY #30 tablet 10/13/20 Unknown Rx amLODIPine 10 mg PO DAILY #30 tab 10/30/20 Unknown Rx Lansoprazole 30 mg PO QDAY #30 capsule. 12/11/20 Unknown Rx methOCARBAMOL [Robaxin TAB] 500 mg PO BID PRN #20 tab 02/27/21 Unknown Rx medroxyPROGESTERone ACETATE 10 mg PO QDAY 10 Days #10 tablet 03/19/21 Unknown Rx [Provera] Famotidine [Pepcid] 20 mg PO BID #60 tablet 06/04/21 Unknown Rx Ibuprofen [Motrin 800 MG tab] 800 mg PO Q8HR #30 tablet 07/01/21 Unknown Rx Sulfamethoxazole/Trimethoprim 1 each PO BID #14 tablet 07/01/21 Unknown Rx [Bactrim DS TAB] traMADoL [Ultram 50 MG tab] 50 mg PO Q6HR PRN #20 tablet 07/01/21 Unknown Rx Allergies/Adverse Reactions: Allergies Allergy/AdvReac Type Severity Reaction Status Date / Time latex Allergy Itching Verified 10/30/20 15:50 ED Review of Systems ROS: Stated complaint: PAINFUL BOIL Other details as noted in HPI Comment: All other systems reviewed and negative Skin: other (Abscess, right upper medial proximal thigh) ED Past Medical Hx - Past Medical History Previous Medical History?: Yes Hx Hypertension: Yes Additional medical history: Morbid Obesity - Surgical History Past Surgical History?: Yes Additional Surgical History: c-sec/ HAND - Social History Smoking Status: Current Every Day Smoker Substance Use Type: Alcohol, Marijuana - Medications Home Medications: Home Medications Medication Instructions Recorded Confirmed Last Taken Type Metoclopramide [Reglan] 10 mg PO Q6H PRN #30 tablet 12/11/18 Unknown Rx Menthol/Camphor [[place] 1 applicatio TP QID PRN #1 tube 07/19/19 Unknown Rx Ointment] Nitrofurantoin [place]/M-Cryst 100 mg PO Q12HR #10 capsule 08/02/19 Unknown Rx [Macrobid CAP] lisinopriL [Zestril TAB] 20 mg PO QDAY #30 tablet 10/13/20 Unknown Rx amLODIPine 10 mg PO DAILY #30 tab 10/30/20 Unknown Rx Lansoprazole 30 mg PO QDAY #30 capsule. 12/11/20 Unknown Rx methOCARBAMOL [Robaxin TAB] 500 mg PO BID PRN #20 tab 02/27/21 Unknown Rx medroxyPROGESTERone ACETATE 10 mg PO QDAY 10 Days #10 tablet 03/19/21 Unknown Rx [Provera] Famotidine [Pepcid] 20 mg PO BID #60 tablet 06/04/21 Unknown Rx Ibuprofen [Motrin 800 MG tab] 800 mg PO Q8HR #30 tablet 07/01/21 Unknown Rx Sulfamethoxazole/Trimethoprim 1 each PO BID #14 tablet 07/01/21 Unknown Rx [Bactrim DS TAB] traMADoL [Ultram 50 MG tab] 50 mg PO Q6HR PRN #20 tablet 07/01/21 Unknown Rx ED Abscess Boil Physical Exam - Exam General: Vital signs noted. No distress. Alert and acting appropriately. Size: 2 cm Exam: Yes Tenderness, Yes Fluctuance (mild ), Yes Heart Murmur, Yes Normal Ne urologic Exam, Yes Normal Circulation, No Surrounding Cellulites/Erythema, No Lymphangitis, No Crepitation Exam: Patient has a an approximately 2 cm x 1 cm indurated, slightly fluctuant area with small central pointing noted to the right proximal medial thigh area. No overlying cellulitis or significant lymphangitis. Area is tender to palpate Critical care attestation.: If time is entered above; I have spent that time in minutes in the direct care of this critically ill patient, excluding procedure time. ED Medical Decision Making - Medical Decision Making She with a small abscess to her proximal medial right thigh. Offered to do an I&D, but patient opted to do antibiotics and warm compresses first. She understands that there is a chance that the area could get worse despite taking the antibiotics and warm compresses. She expressed understanding but still opted to do just antibiotics and warm compresses. Patient will be given prescription for Bactrim and medication for pain. Patient is not toxic or ill- appearing and not currently in any significant distress. Patient was stable at time of discharge. ED Disposition Clinical Impression: Abscess of thigh Disposition: 01 HOME / SELF CARE / HOMELESS Is pt being admited?: No Does the pt Need Aspirin: No Condition: Stable Instructions: Skin Abscess, [id number] Additional Instructions: I recommend that you take the Bactrim as prescribed to completion. Continue doing the warm compresses. Take the ibuprofen and the tramadol as prescribed to help with any pain. Return to the ER if your symptoms worsen despite taking antibiotics. Prescriptions: Sulfamethoxazole/Trimethoprim [Bactrim DS TAB] 1 each PO BID #14 tablet Ibuprofen [Motrin 800 MG tab] 800 mg PO Q8HR #30 tablet traMADoL [Ultram 50 MG tab] 50 mg PO Q6HR PRN #20 tablet PRN Reason: Pain Referrals: [facility] [Provider Group] - 3-5 Days Forms: Work/School Release Form(ED) Time of Disposition: 10:57 Print Language: KAZAKH
== END 2021-07-01 11:13 | disposition home or self-care (01) ==
LOC: ED 09:39
DX: L02.415 Cutaneous abscess of right lower limb (principal); I10 Essential (primary) hypertension; E66.01 Morbid (severe) obesity due to excess calories; Z98.890 Other specified postprocedural states; F17.290 Nicotine dependence, other tobacco product, uncomplicated; Z91.040 Latex allergy status
CPT/HCPCS: 99281

== ENCOUNTER 2022-01-30 06:23 | Emergency (ER) | payer BC ==
--- NOTE | 2022-01-30 09:37 | Emergency Department Report ---
ED General Adult HPI - General Chief complaint: High BP Stated complaint: HIGH BP/RT ARM PAIN/FEET SWOLLEN/HEADACHE Source: patient Mode of arrival: Ambulatory Limitations: No Limitations - History of Present Illness Initial comments: 41-year-old female -[place] with a past medical history of hypertension and obesity presents to the ER today with complaints of elevated blood pressure and headache. Patient states that she takes amlodipine 5 mg for her hypertension but she has been out for about a month. She states that over the past few days she has been having diffuse headache, as well as some swelling to both of her ankles and some right shoulder pain. She reports no chest pain, focal weakness, vision changes, speech changes or any additional symptoms. MD Complaint: Elevated BP/BAUGH -: week(s) - Related Data Previous Rx's Medication Instructions Recorded Last Taken Type Butalb/Acetamin/Caff 50-325-40 1 tab PO Q6HR PRN #12 tab 01/30/22 Unknown Rx [Fioricet 50-325-40] amLODIPine 10 mg PO DAILY #30 tab 01/30/22 Unknown Rx Allergies Allergy/AdvReac Type Severity Reaction Status Date / Time latex Allergy Itching Verified 10/30/20 15:50 ED Review of Systems ROS: Stated complaint: HIGH BP/RT ARM PAIN/FEET SWOLLEN/HEADACHE Other details as noted in HPI Comment: All other systems reviewed and negative Constitutional: denies: chills, fever Eyes: denies: eye pain, eye discharge, vision change ENT: denies: ear pain, throat pain Respiratory: denies: cough, shortness of breath, SOB with exertion, SOB at rest, wheezing Cardiovascular: denies: chest pain, palpitations Gastrointestinal: denies: abdominal pain, nausea, vomiting, diarrhea, constipation, hematemesis, hematochezia Musculoskeletal: arthralgia, myalgia Neurological: headache. denies: weakness, numbness, paresthesias, confusion, abnormal gait, vertigo Psychiatric: denies: anxiety, depression, auditory hallucinations, visual hallucinations, homicidal thoughts, suicidal thoughts Hematological/Lymphatic: denies: easy bleeding, easy bruising, swollen glands ED Past Medical Hx - Past Medical History Hx Hypertension: Yes Additional medical history: Morbid Obesity - Surgical History Past Surgical History?: Yes Additional Surgical History: c-sec/ HAND - Social History Smoking Status: Current Every Day Smoker Substance Use Type: Alcohol, Marijuana - Medications Home Medications: Home Medications Medication Instructions Recorded Confirmed Last Taken Type Butalb/Acetamin/Caff 50-325-40 1 tab PO Q6HR PRN #12 tab 01/30/22 Unknown Rx [Fioricet 50-325-40] amLODIPine 10 mg PO DAILY #30 tab 01/30/22 Unknown Rx ED Physical Exam - General Limitations: No Limitations General appearance: alert, in no apparent distress, obese - Head Head exam: Present: atraumatic, normocephalic, normal inspection - Eye Eye exam: Present: normal appearance, PERRL, EOMI Pupils: Present: normal accommodation - ENT ENT exam: Present: normal exam, mucous membranes moist - Neck Neck exam: Present: normal inspection, full ROM. Absent: meningismus - Respiratory Respiratory exam: Present: normal lung sounds bilaterally. Absent: respiratory distress, wheezes, rales, rhonchi - Cardiovascular Cardiovascular Exam: Present: regular rate, normal rhythm, normal heart sounds - GI/Abdominal GI/Abdominal exam: Present: soft. Absent: distended, tenderness, guarding, rebound - Extremities Exam Extremities exam: Present: full ROM, normal capillary refill, pedal edema (Mild soft tissue swelling bilateral ankle and foot). Absent: tenderness, calf te nderness - Neurological Exam Neurological exam: Present: alert, oriented X3, CN II-XII intact, normal gait. Absent: motor sensory deficit - Psychiatric Psychiatric exam: Present: normal affect, normal mood - Skin Skin exam: Present: intact ED Course Vital Signs 01/30/22 01/30/22 01/30/22 08:31 09:47 11:28 Temperature 98.2 F Pulse Rate 78 70 68 Respiratory 16 18 Rate Blood Pressure 189/100 179/104 [Left] Blood Pressure 135/84 [Right] O2 Sat by Pulse 98 99 Oximetry 01/30/22 12:05 Temperature Pulse Rate 68 Respiratory 18 Rate Blood Pressure [Left] Blood Pressure 135/84 [Right] O2 Sat by Pulse 99 Oximetry ED Medical Decision Making - Lab Data Result diagrams: 01/30/22 09:41 01/30/22 09:41 - Radiology Data Radiology results: report reviewed Patient: HERNÁN NEWMAN Kelin#: [id number] : 1980 A cct:[id number] Age/Sex: 41 / F ADM Date: 01/30/22 Loc: ED Attending Dr: Ordering Physician: ALECIA ROSSI Date of Service: 01/30/22 Procedure(s): CT head/brain wo con Accession Number(s): [id number] cc: ALECIA ROSSI CT HEAD WITHOUT CONTRAST INDICATION / CLINICAL INFORMATION: headache/elevated BP. Reports right upper extremity weakness and pain. TECHNIQUE: All CT scans at this location are performed using CT dose reduction for ALARA by means of automated exposure control. COMPARISON: None available. FINDINGS: HEMORRHAGE: No evidence of intracranial hemorrhage or extra-axial fluid collection. EXTRA-AXIAL SPACES: Cortical sulci, sylvian fissures and basilar cisterns have an unremarkable appearance. VENTRICULAR SYSTEM: The third and lateral ventricles are of normal size and configuration. CEREBRAL PARENCHYMA: No areas of abnormal brain parenchymal attenuation are identified. There is no indication of recent infarction. MIDLINE SHIFT OR HERNIATION: There is no mass effect. CEREBELLUM / BRAINSTEM: Brainstem and cerebellum have an unremarkable appearance. MIDLINE STRUCTURES:No abnormalities of the pituitary gland or pineal region are identified. INTRACRANIAL VESSELS:No abnormalities are identified on this noncontrast head CT. ORBITS: visualized portions of the orbits have an unremarkable appearance. SOFT TISSUES of HEAD: No significant abnormality. CALVARIUM: Evaluation of bone windows reveals no abnormalities. PARANASAL SINUSES / MASTOID AIR CELLS: Visualized portions of the paranasal sinuses are free from inflammatory mucosal disease. Mastoid air cells are normally pneumatized. ADDITIONAL FINDINGS: None. IMPRESSION: 1. No significant intracranial abnormality. Signer Name: Camden Kiser MD Signed: 01/30/2022 10:13 AM Workstation Name: [id number] Transcribed By: Dictated By: Camden Kiser MD Electronically Authenticated By: Camden Kiser MD Signed Date/Time: 01/30/22 1013 DD/ 1011 TD/TT: Print Cancel - Medical Decision Making Repeat vitals shows improvement of patient's blood pressure. CT head negative for anything acute. CMP unremarkable. Patient currently resting comfortably in the bed. She reports improvement of her headache after meds given here in the ER. She is not toxic or ill-appearing and not in any significant distress. She is mentally stable, and she has no focal neurological deficits on exam and her gait is normal. Discussed results with patient. Stressed to her the importance of being compliant with her amlodipine and following up with her primary care doctor for continued monitoring of her hypertension. At this time there is no indication for any additional testing or admission. Patient expressed understanding for instructions and agree with plan. Patient was stable at time of discharge. Critical care attestation.: If time is entered above; I have spent that time in minutes in the direct care of this critically ill patient, excluding procedure time. ED Disposition Clinical Impression: Uncontrolled hypertension, Non compliance w medication regimen, Headache Disposition: 01 HOME / SELF CARE / HOMELESS Is pt being admited?: No Does the pt Need Aspirin: No Condition: Stable Instructions: Hypertension, Adult, Bzzd-[id number], Managing Your Hypertension, Hypertension (ED) Additional Instructions: It is important that you start the amlodipine and start taking it today. You can take the fioricet as needed for BAUGH. I do recommend that [facility]. Return to ED if worse. Prescriptions: amLODIPine 10 mg PO DAILY #30 tab Butalb/Acetamin/Caff 50-325-40 [Fioricet 50-325-40] 1 tab PO Q6HR PRN #12 tab PRN Reason: Headache Referrals: PRIMARY CARE, [Primary Care Provider] - 3-5 Days Forms: Work/School Release Form(ED) Time of Disposition: 11:49
[2022-01-30] MEDS: diphenhydrAMINE 25 MG CAP PO ONE (09:43)
[2022-01-30] MEDS: METOCLOPRAMIDE 10 MG TAB PO ONE (09:44)
[2022-01-30 09:55] LABS: Basophils # (Auto) 0.1 K/mm3 (0.0-0.1); Basophils % (Auto) 0.8 % (0.0-1.8); Eosinophils # (Auto) 0.2 K/mm3 (0.0-0.4); Eosinophils % (Auto) 2.4 % (0.0-4.3); Hematocrit 39.1 % (30.3-42.9); Hemoglobin 13.7 gm/dl (10.1-14.3); Lymphocytes # (Auto) 3.1 K/mm3 (1.2-5.4); Lymphocytes % (Auto) 35.7 % (13.4-35.0); Mean Corpuscular HGB Conc 35 % (30-34); Mean Corpuscular Volume 93 fl (79-97); Monocytes # (Auto) 0.6 K/mm3 (0.0-0.8); Monocytes % (Auto) 6.5 % (0.0-7.3); Platelet Count 290 K/mm3 (140-440); Red Cell Distribution Width 14.7 % (13.2-15.2)
--- NOTE | 2022-01-30 10:18 | Cat Scan Report ---
CT HEAD WITHOUT CONTRAST INDICATION / CLINICAL INFORMATION: headache/elevated BP. Reports right upper extremity weakness and pain. TECHNIQUE: All CT scans at this location are performed using CT dose reduction for ALARA by means of automated e xposure control. COMPARISON: None available. FINDINGS: HEMORRHAGE: No evidence of intracranial hemorrhage or extra-axial fluid collection. EXTRA-AXIAL SPACES: Cortical sulci, sylvian fissures and basilar cisterns have an unremarkable appear ance. VENTRICULAR SYSTEM: The third and lateral ventricles are of normal size and configuration. CEREBRAL PARENCHYMA: No areas of abnormal brain parenchymal attenuation are identified. There is no i ndication of recent infarction. MIDLINE SHIFT OR HERNIATION: There is no mass effect. CEREBELLUM / BRAINSTEM: Brainstem and cerebellum have an unremarkable appearance. MIDLINE STRUCTURES:No abnormalities of the pituitary gland or pineal region are identified. INTRACRANIAL VESSELS:No abnormalities are identified on this noncontrast head CT. ORBITS: visualized portions of the orbits have an unremarkable appearance. SOFT TISSUES of HEAD: No significant abnormality. CALVARIUM: Evaluation of bone windows reveals no abnormalities. PARANASAL SINUSES / MASTOID AIR CELLS: Visualized portions of the paranasal sinuses are free from inf lammatory mucosal disease. Mastoid air cells are normally pneumatized. ADDITIONAL FINDINGS: None. IMPRESSION: 1. No significant intracranial abnormality. Signer Name: Camden Kiser MD Signed: 01/30/2022 10:13 AM Workstation Name: [id number]
[2022-01-30] MEDS: cloNIDine 0.1 MG TAB PO ONE (10:22)
[2022-01-30 10:23] LABS: Alanine Aminotransferase 16 units/L (7-56); Albumin 3.9 g/dL (3.9-5); Blood Urea Nitrogen 6 mg/dL (7-17); Calcium 8.7 mg/dL (8.4-10.2); Hemolysis Index 16
[2022-01-30 10:27] LABS: BUN/Creatinine Ratio 12
[2022-01-30 11:30] VITALS: BP 135/84
== END 2022-01-30 12:05 | disposition home or self-care (01) ==
LOC: ED 06:23
DX: I10 Essential (primary) hypertension (principal); R51.9 Headache, unspecified; Z91.14 Patient's other noncompliance with medication regimen; F17.200 Nicotine dependence, unspecified, uncomplicated
CPT/HCPCS: 36415; 70450; 80053; 85025; 99284

== ENCOUNTER 2022-03-08 13:59 | Emergency (ER) | payer BC ==
[2022-03-08 14:38] VITALS: BP 169/115
== END 2022-03-08 23:00 | disposition left against medical advice (07) ==
LOC: ED 13:59
DX: M54.50 Low back pain, unspecified (principal); M79.89 Other specified soft tissue disorders; Z53.21 Procedure and treatment not carried out due to patient leaving prior to being seen by health care provider

== ENCOUNTER 2022-03-09 11:09 | Emergency (ER) | payer BC ==
[2022-03-09 12:21] VITALS: BP 144/76
--- NOTE | 2022-03-09 16:48 | Emergency Department Report ---
- General Chief Complaint: Headache Stated Complaint: HEADPAIN/BACK PAIN/SWELLING IN LEGS Source: patient Mode of arrival: Ambulatory Limitations: No Limitations - History of Present Illness Initial Comments: 41-year-old female presents to the ED complaining of sinus pressure, headache, nasal congestion, and cough x2 weeks. She also [place] she has to do prolonged standing which often causes her back to her also. Patient denies any pain at present time. patient denies any fever chills or nausea or vomiting. States taking [id number] medication without any relief. Patient is alert and oriented x3. No acute distress noted. No Ill appearance noted. MD Complaint: cough, nasal congestion Onset/Timin -: week(s) Severity: mild Consistency: intermittent Improves With: nothing - Related Data Previous Rx's Medication Instructions Recorded Last Taken Type Butalb/Acetamin/Caff 50-325-40 1 tab PO Q6HR PRN #12 tab 01/30/22 Unknown Rx [Fioricet 50-325-40] amLODIPine 10 mg PO DAILY #30 tab 01/30/22 Unknown Rx Amoxicillin/K Clav Tab [Augmentin 1 tab PO Q12HR 10 Days #20 tab 03/09/22 Unknown Rx 875 mg] Ketorolac [Toradol] 10 mg PO Q6H PRN 10 Days #20 tab 03/09/22 Unknown Rx predniSONE [Deltasone] 50 mg PO QDAY 3 Days #3 tab 03/09/22 Unknown Rx Allergies Allergy/AdvReac Type Severity Reaction Status Date / Time latex Allergy Intermediate Itching Verified 03/08/22 14:38 ED Review of Systems ROS: Stated complaint: HEADPAIN/BACK PAIN/SWELLING IN LEGS Other details as noted in HPI Constitutional: denies: chills, fever Eyes: denies: eye pain, eye discharge, vision change ENT: denies: ear pain, throat pain Respiratory: cough. denies: shortness of breath, wheezing Cardiovascular: denies: chest pain, palpitations Endocrine: no symptoms reported Gastrointestinal: denies: abdominal pain, nausea, diarrhea Genitourinary: denies: urgency, dysuria, discharge Musculoskeletal: denies: back pain, joint swelling, arthralgia Skin: denies: rash, lesions Neurological: denies: headache, weakness, paresthesias Psychiatric: denies: anxiety, depression Hematological/Lymphatic: denies: easy bleeding, easy bruising ED Past Medical Hx - Past Medical History Hx Hypertension: Yes Additional medical history: Morbid Obesity - Surgical History Additional Surgical History: c-sec/ HAND - Social History Smoking Status: Current Every Day Smoker Substance Use Type: Alcohol, Marijuana - Medications Home Medications: Home Medications Medication Instructions Recorded Confirmed Last Taken Type Butalb/Acetamin/Caff 50-325-40 1 tab PO Q6HR PRN #12 tab 01/30/22 Unknown Rx [Fioricet 50-325-40] amLODIPine 10 mg PO DAILY #30 tab 01/30/22 Unknown Rx Amoxicillin/K Clav Tab [Augmentin 1 tab PO Q12HR 10 Days #20 tab 03/09/22 Unknown Rx 875 mg] Ketorolac [Toradol] 10 mg PO Q6H PRN 10 Days #20 tab 03/09/22 Unknown Rx predniSONE [Deltasone] 50 mg PO QDAY 3 Days #3 tab 03/09/22 Unknown Rx ED Physical Exam - General Limitations: No Limitations General appearance: alert, in no apparent distress - Head Head exam: Present: atraumatic, normocephalic - Eye Eye exam: Present: normal appearance - ENT ENT exam: Present: mucous membranes moist - Expanded ENT Exam Expanded TM/Canal exam: Mastoid Tenderness: Right TM, Left TM (Frontal) - Neck Neck exam: Present: normal inspection - Respiratory Respiratory exam: Present: normal lung sounds bilaterally. Absent: respiratory distress - Cardiovascular Cardiovascular Exam: Present: regular rate, normal rhythm. Absent: systolic murmur, diastolic murmur, rubs, gallop - GI/Abdominal GI/Abdominal exam: Present: soft, normal bowel sounds - Extremities Exam Extremities exam: Present: normal inspection - Back Exam Back exam: Present: normal inspection - Neurological Exam Neurological exam: Present: alert, oriented X3 - Psychiatric Psychiatric exam: Present: normal affect, normal mood - Skin Skin exam: Present: warm, dry, intact, normal color. Absent: rash ED Course Vital Signs 03/09/22 12:14 Temperature 98.6 F Pulse Rate 78 Respiratory 16 Rate Blood Pressure 144/76 [Left] O2 Sat by Pulse 96 Oximetry ED Medical Decision Making - Medical Decision Making 41-year-old female presents to the ED complaining of sinus pressure, headache, nasal congestion, and cough x2 weeks. She also states that [place] and she has to do prolonged standing which often causes her back to her also. Patient denies any pain at present time. patient denies any fever chills or nausea or vomiting. States taking [id number] medication without any relief. Patient is alert and oriented x3. No acute distress noted. No Ill appearance noted. Physical examination patient has frontal tenderness noted. Rechecked the patient is resting quietly, and comfortable and feeling better. I discussed the results of diagnostic study, my clinical impression and the plan for further treatment with the patient. Patient agrees with plan and discharge at this present time. All question addressed. I have given the patient instruction regarding a diagnosis ,expectation ,follow- up and return precaution. I explained to the patient that emergent condition may arise and to return to the ED for new worsen and any new persisting condition. I have explained the importance of following up with the primary care physician or referral physician listed below has instructed. The patient verbalized unders tanding of discharge instruction. Critical care attestation.: If time is entered above; I have spent that time in minutes in the direct care of this critically ill patient, excluding procedure time. ED Disposition Clinical Impression: Chronic back pain Sinusitis Qualifiers: Sinusitis location: frontal Chronicity: acute Recurrence: non-recurrent Qualified Code(s): J01.10 - Acute frontal sinusitis, unspecified Disposition: 01 HOME / SELF CARE / HOMELESS Is pt being admited?: No Condition: Stable Instructions: Sinusitis, Adult, [id number], What You Need to Know About Chronic Back Pain, Chronic Back Pain Additional Instructions: Take medication as prescribed Return to the ED for any worsening symptoms Prescriptions: Amoxicillin/K Clav Tab [Augmentin 875 mg] 1 tab PO Q12HR 10 Days #20 tab predniSONE [Deltasone] 50 mg PO QDAY 3 Days #3 tab Ketorolac [Toradol] 10 mg PO Q6H PRN 10 Days #20 tab PRN Reason: Pain Referrals: [facility] [Provider Group] - 3[facility] Days [facility] Forms: Work/School Release Form(ED) Time of Disposition: 16:51
== END 2022-03-09 17:00 | disposition home or self-care (01) ==
LOC: ED 11:09
DX: R50.9 Fever, unspecified (principal); R09.81 Nasal congestion; G89.29 Other chronic pain; M54.9 Dorsalgia, unspecified; I10 Essential (primary) hypertension; F17.200 Nicotine dependence, unspecified, uncomplicated; F10.20 Alcohol dependence, uncomplicated; F12.90 Cannabis use, unspecified, uncomplicated
CPT/HCPCS: 99282

== ENCOUNTER 2022-03-20 13:01 | Emergency (ER) | payer BC ==
[2022-03-20 14:02] VITALS: BP 144/80
--- NOTE | 2022-03-20 14:08 | Emergency Department Report ---
ED Female HPI - General Chief complaint: Urogenital-Female Stated complaint: YEAST INFECTION Time Seen by Provider: 03/20/22 14:03 Source: patient Mode of arrival: Ambulatory Limitations: No Limitations - History of Present Illness Initial comments: 41-year-old black female presents to the emergency department for evaluation of vaginal irritation. She states that for the past week she has been on Augmentin for a sinus infection, and a few days ago, she developed vaginal irritation, redness, and cottage cheeselike discharge. She states that she has a history of developing a yeast infection after antibiotics in her symptoms have been consistent with that. She states that she used an uxds-mvs-fliuhpt cream without any improvement. She denies fever, abdominal pain, dysuria. MD Complaint: vaginal discharge -: Gradual, days(s) (2-3) Severity scale (0 -10): 0 Are you Now?: No Associated Symptoms: vaginal discharge. denies: vaginal bleeding, abdominal pain, nausea/vomiting, fever/chills, headaches, loss of appetite, dysuria, hematuria, rash, seizure, shortness of breath, syncope, weakness - Related Data Sexually active: Yes Previous Rx's Medication Instructions Recorded Last Taken Type Butalb/Acetamin/Caff 50-325-40 1 tab PO Q6HR PRN #12 tab 01/30/22 Unknown Rx [Fioricet 50-325-40] amLODIPine 10 mg PO DAILY #30 tab 01/30/22 Unknown Rx Amoxicillin/K Clav Tab [Augmentin 1 tab PO Q12HR 10 Days #20 tab 03/09/22 Unknown Rx 875 mg] Ketorolac [Toradol] 10 mg PO Q6H PRN 10 Days #20 tab 03/09/22 Unknown Rx predniSONE [Deltasone] 50 mg PO QDAY 3 Days #3 tab 03/09/22 Unknown Rx Fluconazole (Nf) [Diflucan TAB] 150 mg PO ONCE #1 tablet 03/20/22 Unknown Rx Allergies Allergy/AdvReac Type Severity Reaction Status Date / Time latex Allergy Intermediate Itching Verified 03/08/22 14:38 ED Review of Systems ROS: Stated complaint: YEAST INFECTION Other details as noted in HPI Comment: All other systems reviewed and negative Constitutional: denies: chills Eyes: denies: vision change ENT: denies: congestion Respiratory: denies: shortness of breath, SOB with exertion Cardiovascular: denies: chest pain, palpitations, dyspnea on exertion Gastrointestinal: denies: abdominal pain, nausea, vomiting Genitourinary: discharge. denies: urgency, dysuria, frequency, hematuria Musculoskeletal: denies: back pain Skin: denies: rash, lesions Neurological: denies: headache, weakness ED Past Medical Hx - Past Medical History Hx Hypertension: Yes Additional medical history: Morbid Obesity - Surgical History Additional Surgical History: c-sec/ HAND - Social History Smoking Status: Never Smoker - Medications Home Medications: Home Medications Medication Instructions Recorded Confirmed Last Taken Type Butalb/Acetamin/Caff 50-325-40 1 tab PO Q6HR PRN #12 tab 01/30/22 Unknown Rx [Fioricet 50-325-40] amLODIPine 10 mg PO DAILY #30 tab 01/30/22 Unknown Rx Amoxicillin/K Clav Tab [Augmentin 1 tab PO Q12HR 10 Days #20 tab 03/09/22 Unknown Rx 875 mg] Ketorolac [Toradol] 10 mg PO Q6H PRN 10 Days #20 tab 03/09/22 Unknown Rx predniSONE [Deltasone] 50 mg PO QDAY 3 Days #3 tab 03/09/22 Unknown Rx Fluconazole (Nf) [Diflucan TAB] 150 mg PO ONCE #1 tablet 03/20/22 Unknown Rx ED Physical Exam - General Limitations: No Limitations General appearance: alert, in no apparent distress - Head Head exam: Present: atraumatic, normocephalic - Eye Eye exam: Present: normal appearance. Absent: scleral icterus, conjunctival injection, periorbital swelling, periorbital tenderness - Neck Neck exam: Present: normal inspection. Absent: lymphadenopathy - Respiratory Respiratory exam: Present: normal lung sounds bilaterally. Absent: respiratory distress, wheezes, rales, rhonchi, stridor, chest wall tenderness - Cardiovascular Cardiovascular Exam: Present: regular rate, normal heart sounds - GI/Abdominal GI/Abdominal exam: Present: soft, normal bowel sounds. Absent: distended, tenderness, guarding, rebound, rigid - External exam: Present: erythema - Extremities Exam Extremities exam: Present: normal inspection - Back Exam Back exam: Present: normal inspection. Absent: CVA tenderness (R), CVA tenderness (L) - Neurological Exam Neurological exam: Present: alert, oriented X3 - Psychiatric Psychiatric exam: Present: normal affect, normal mood - Skin Skin exam: Present: warm, dry, intact, normal color ED Course Vital Signs 03/20/22 13:58 Temperature 97.9 F Pulse Rate 92 H Respiratory 14 Rate Blood Pressure 144/80 O2 Sat by Pulse 95 Oximetry ED Medical Decision Making - Medical Decision Making 41-year-old black female presents to the emergency department for evaluation of vaginal irritation. She states that for the past week she has been on Augmentin for a sinus infection, and a few days ago, she developed vaginal irritation, redness, and cottage cheeselike discharge. She states that she has a history of developing a yeast infection after antibiotics in her symptoms have been consistent with that. She states that she used an jpxq-vrf-vpumqic cream without any improvement. She denies fever, abdominal pain, dysuria. Physical exam unremarkable. Symptoms consistent with vaginitis, and patient will be treated with one-time dose of Diflucan 150 mg p.o. She is advised to take medication as prescribed and follow-up with her primary care provider if no improvement or worsening symptoms or return to the emergency department as needed. She verbalizes understanding of and agreement with plan of care. Critical care attestation.: If time is entered above; I have spent that time in minutes in the direct care of this critically ill patient, excluding procedure time. ED Disposition Clinical Impression: Yeast vaginitis Disposition: HOME / SELF CARE / HOMELESS Is pt being admited?: No Does the pt Need Aspirin: No Condition: Stable Instructions: Vaginal Yeast Infection, Adult Additional Instructions: take medications as prescribed, continue antibiotics as previously prescribed. Follow up primary care provider if no improvement or worsening symptoms. Return to ED as needed. Prescriptions: Fluconazole (Nf) [Diflucan TAB] 150 mg PO ONCE #1 tablet Referrals: JOURDAN BOSS MD [Primary Care Provider] - 3-5 Days Forms: Work/School Release Form(ED) Time of Disposition: 14:08
== END 2022-03-20 14:30 | disposition home or self-care (01) ==
LOC: ED 13:01
DX: B37.3 Candidiasis of vulva and vagina (principal); E66.01 Morbid (severe) obesity due to excess calories; Z98.890 Other specified postprocedural states; Z91.040 Latex allergy status
CPT/HCPCS: 99282; 99283

== ENCOUNTER 2022-05-14 21:21 | Emergency (ER) | payer SELFPAY ==
[2022-05-15] MEDS ORDERED: HYDROcodone/ACETAMINOPHEN 10-325MG TAB PO ONE (07:56)
--- NOTE | 2022-05-15 08:53 | Cat Scan Report ---
CT HEAD WITHOUT CONTRAST CT cervical spine without contrast INDICATION / CLINICAL INFORMATION: pain s/p head injury. TECHNIQUE: All CT scans at this location are performed using CT dose reduction for ALARA by means of automated exposure control. COMPARISON: CT head dated 01/30/2022 FINDINGS: HEMORRHAGE: None. EXTRA-AXIAL SPACES: Normal in size and morphology for the patient's age. VENTRICULAR SYSTEM: Normal in size and morphology for the patient's age. CEREBRAL PARENCHYMA: No significant abnormality. No acute territorial infarct. MIDLINE SHIFT / HERNIATION: None. CEREBELLUM / BRAINSTEM: No significant abnormality. ORBITS: Normal as visualized. SOFT TISSUES: No significant abnormality. SKULL: No significant abnormality. PARANASAL SINUSES / MASTOID AIR CELLS: Normal as visualized. ADDITIONAL FINDINGS: None. Cervical spine: Evaluation of lower cervical vertebra is limited secondary to photon starvation. VERTEBRAE: No significant abnormality. ALIGNMENT: Straightening of normal cervical lordosis is likely positional. DISC SPACES: No significant abnormality. FACET JOINTS: No significant abnormality. CRANIOCERVICAL JUNCTION:No significant abnormality. SPINAL CANAL: No significant abnormality. PARASPINAL SOFT TISSUES: No significant abnormality. ADDITIONAL FINDINGS: None. LUNG APICES: No significant abnormality of visualized lungs. IMPRESSION: 1. No acute intracranial abnormality. 2. No acute fracture or malalignment of the cervical spine. Signer Name: Jarod Capellan MD Signed: 05/15/2022 8:48 AM Workstation Name: [id number]
--- NOTE | 2022-05-15 09:15 | Emergency Department Report ---
ED Head Trauma HPI - General Chief complaint: Head Injury Stated complaint: HEADACHE,HEAD INJURY Time Seen by Provider: 05/15/22 07:39 Source: patient Mode of arrival: Ambulatory Limitations: No Limitations - History of Present Illness Initial comments: This is a 41-year-old female nontoxic, well nourished in appearance, no acute signs of distress presents to the ED with c/o of headache x 1 day. Patient stated that a pot fell on her head which caused symptoms of headaches. Patient stated had some dizziness yesterday but denies any dizziness as of today. Denies any loss of consciousness. Patient describes headache as diffuse with level of 8 out of 10. Patient denies thunderclap headache. Patient denies any radiation of pain. Patient denies any head trauma. Patient denies any visual changes. Patient denies worse headache. Patient denies any numbness, tingling, fever, chills, nausea, vomiting, chest pain, shortness of breath, stiff neck. Patient denies facial drooping or one sided weakness. Patient denies any radiation of pain. Patient stated allergies to latex. MD Complaint: head injury -: days(s) Location: frontal Loss of Consciousness: no Previous Trauma to this Area: No Radiation: none Severity: mild Severity scale (0 -10): 8 Quality: aching Consistency: constant Other Injuries: none Associated Symptoms: denies other symptoms. denies: confusion, amnesia, repetitive questioning, vision changes, nausea, vomiting, vertigo, syncope, numbness, weakness, tingling, neck pain - Related Data Previous Rx's Medication Instructions Recorded Last Taken Type Butalb/Acetamin/Caff 50-325-40 1 tab PO Q6HR PRN #12 tab 01/30/22 Unknown Rx [Fioricet 50-325-40] amLODIPine 10 mg PO DAILY #30 tab 01/30/22 Unknown Rx Amoxicillin/K Clav Tab [Augmentin 1 tab PO Q12HR 10 Days #20 tab 03/09/22 Unknown Rx 875 mg] Ketorolac [Toradol] 10 mg PO Q6H PRN 10 Days #20 tab 03/09/22 Unknown Rx predniSONE [Deltasone] 50 mg PO QDAY 3 Days #3 tab 03/09/22 Unknown Rx Fluconazole (Nf) [Diflucan TAB] 150 mg PO ONCE #1 tablet 03/20/22 Unknown Rx Butalb/Acetaminophen/Caffeine 1 cap PO Q8HR PRN #12 cap 05/15/22 Unknown Rx [Fioricet 50-300-40 mg CAP] Allergies/Adverse reactions: Allergies Allergy/AdvReac Type Severity Reaction Status Date / Time latex Allergy Intermediate Itching Verified 03/08/22 14:38 ED Review of Systems ROS: Stated complaint: HEADACHE,HEAD INJURY Other details as noted in HPI Comment: All other systems reviewed and negative Constitutional: denies: chills, fever Eyes: denies: eye pain, eye discharge, vision change ENT: denies: ear pain, throat pain Respiratory: denies: cough, shortness of breath, wheezing Cardiovascular: denies: chest pain, palpitations Endocrine: no symptoms reported Gastrointestinal: denies: abdominal pain, nausea, diarrhea Genitourinary: denies: urgency, dysuria, discharge Musculoskeletal: denies: back pain, joint swelling, arthralgia Skin: denies: rash, lesions Neurological: headache. denies: weakness, numbness, paresthesias, confusion, abnormal gait, vertigo Psychiatric: denies: anxiety, depression Hematological/Lymphatic: denies: easy bleeding, easy bruising ED Past Medical Hx - Past Medical History Previous Medical History?: Yes Hx Hypertension: Yes Additional medical history: Morbid Obesity - Surgical History Past Surgical History?: Yes Additional Surgical History: c-sec/ HAND - Social History Smoking Status: Never Smoker Substance Use Type: None - Medications Home Medications: Home Medications Medication Instructions Recorded Confirmed Last Taken Type Butalb/Acetamin/Caff 50-325-40 1 tab PO Q6HR PRN #12 tab 01/30/22 Unknown Rx [Fioricet 50-325-40] amLODIPine 10 mg PO DAILY #30 tab 01/30/22 Unknown Rx Amoxicillin/K Clav Tab [Augmentin 1 tab PO Q12HR 10 Days #20 tab 03/09/22 Unknown Rx 875 mg] Ketorolac [Toradol] 10 mg PO Q6H PRN 10 Days #20 tab 03/09/22 Unknown Rx predniSONE [Deltasone] 50 mg PO QDAY 3 Days #3 tab 03/09/22 Unknown Rx Fluconazole (Nf) [Diflucan TAB] 150 mg PO ONCE #1 tablet 03/20/22 Unknown Rx Butalb/Acetaminophen/Caffeine 1 cap PO Q8HR PRN #12 cap 05/15/22 Unknown Rx [Fioricet 50-300-40 mg CAP] ED Physical Exam - General Limitations: No Limitations General appearance: alert, in no apparent distress - Head Head exam: Present: atraumatic, normocephalic - Eye Eye exam: Present: normal appearance, PERRL, EOMI - Neck Neck exam: Present: normal inspection, full ROM. Absent: tenderness, meningismus, lymphadenopathy - Respiratory Respiratory exam: Absent: respiratory distress - Cardiovascular Cardiovascular Exam: Present: regular rate. Absent: gallop - Extremities Exam Extremities exam: Present: full ROM - Back Exam Back exam: Present: full ROM - Neurological Exam Neurological exam: Present: alert, oriented X3, normal gait - Expanded Neurological Exam Expanded Patient oriented to: Present: person, place, time Cranial nerves: EOM's Intact: Normal, Facial Sensation: Normal Cerebellar function: Finger to Nose: Normal Upper motor neuron: Pronator Drift: Normal, Sensory Extinction: Normal Motor strength exam: RUE: 5, LUE: 5, RLE: 5, LLE: 5 Best Eye Response ([place]): (4) open spontaneously Best Motor Response ([place]): (6) obeys commands Best Verbal Response ([place]): (5) oriented Celia Total: 15 - Psychiatric Psychiatric exam: Present: normal affect, normal mood - Skin Skin exam: Present: warm, dry, intact, normal color. Absent: rash ED Course Vital Signs 05/14/22 05/15/22 05/15/22 21:45 00:02 05:18 Temperature 99.2 F Pulse Rate 88 84 84 Respiratory 18 16 16 Rate Blood Pressure 187/99 Blood Pressure 182/78 180/78 [Right] O2 Sat by Pulse 98 100 100 Oximetry - Reevaluation(s) Reevaluation #1: 05/15/22 09:17 Patient is speaking in full sentences with no signs of distress noted. - Radiology Data [facility] [address] [place] [address] Cat Scan Report Signed Patient: HERNÁN NEWMAN#: [id number] : 1980 Acct:[id number] Age/Sex: 41 / F ADM Date: 05/14/22 Loc: ED Attending Dr: Ordering Physician: DUANE BERMAN NP Date of Service: 05/15/22 Procedure(s): CT head/brain wo con Accession Number(s): [id number] cc: DUANE BERMAN NP CT HEAD WITHOUT CONTRAST CT cervical spine without contrast INDICATION / CLINICAL INFORMATION: pain s/p head injury. TECHNIQUE: All CT scans at this location are performed using CT dose reduction for ALARA by means of automated exposure control. COMPARISON: CT head dated 01/30/2022 FINDINGS: HEMORRHAGE: None. EXTRA-AXIAL SPACES: Normal in size and morphology for the patient's age. VENTRICULAR SYSTEM: Normal in size and morphology for the patient's age. CEREBRAL PARENCHYMA: No significant abnormality. No acute territorial infarct. MIDLINE SHIFT / HERNIATION: None. CEREBELLUM / BRAINSTEM: No significant abnormality. ORBITS: Normal as visualized. SOFT TISSUES: No significant abnormality. SKULL: No significant abnormality. PARANASAL SINUSES / MASTOID AIR CELLS: Normal as visualized. ADDITIONAL FINDINGS: None. Cervical spine: Evaluation of lower cervical vertebra is limited secondary to photon starvation. VERTEBRAE: No significant abnormality. ALIGNMENT: Straightening of normal cervical lordosis is likely positional. DISC SPACES: No significant abnormality. FACET JOINTS: No significant abnormality. CRANIOCERVICAL JUNCTION:No significant abnormality. SPINAL CANAL: No significant abnormality. PARASPINAL SOFT TISSUES: No significant abnormality. ADDITIONAL FINDINGS: None. LUNG APICES: No significant abnormality of visualized lungs. IMPRESSION: 1. No acute intracranial abnormality. 2. No acute fracture or malalignment of the cervical spine. Signer Name: Bartolo Soriano MD Signed: 05/15/2022 8:48 AM Workstation Name: [email or web address] Transcribed By: JW Dictated By: BARTOLO SORIANO MD Electronically Authenticated By: BARTOLO SORIANO MD Signed Date/Time: 05/15/22847 DD/ 3 TD/TT: [facility] [address] [place] [address] Cat Scan Report Signed Patient: HERNÁN NEWMAN#: [id number] : 1980 Acct:[id number] Age/Sex: 41 / F ADM Date: 05/14/22 Loc: ED Attending Dr: Ordering Physician: DUANE BERMAN NP Date of Service: 05/15/22 Procedure(s): CT cervical spine wo con Accession Number(s): [id number] cc: DUANE BERMAN NP CT HEAD WITHOUT CONTRAST CT cervical spine without contrast INDICATION / CLINICAL INFORMATION: pain s/p head injury. TECHNIQUE: All CT scans at this location are performed using CT dose reduction for ALARA by means of automated exposure control. COMPARISON: CT head dated 01/30/2022 FINDINGS: HEMORRHAGE: None. EXTRA-AXIAL SPACES: Normal in size and morphology for the patient's age. VENTRICULAR SYSTEM: Normal in size and morphology for the patient's age. CEREBRAL PARENCHYMA: No significant abnormality. No acute territorial infarct. MIDLINE SHIFT / HERNIATION: None. CEREBELLUM / BRAINSTEM: No significant abnormality. ORBITS: Normal as visualized. SOFT TISSUES: No significant abnormality. SKULL: No significant abnormality. PARANASAL SINUSES / MASTOID AIR CELLS: Normal as visualized. ADDITIONAL FINDINGS: None. Cervical spine: Evaluation of lower cervical vertebra is limited secondary to photon starvation. VERTEBRAE: No significant abnormality. ALIGNMENT: Straightening of normal cervical lordosis is likely positional. DISC SPACES: No significant abnormality. FACET JOINTS: No significant abnormality. CRANIOCERVICAL JUNCTION:No significant abnormality. SPINAL CANAL: No significant abnormality. PARASPINAL SOFT TISSUES: No significant abnormality. ADDITIONAL FINDINGS: None. LUNG APICES: No significant abnormality of visualized lungs. IMPRESSION: 1. No acute intracranial abnormality. 2. No acute fracture or malalignment of the cervical spine. Signer Name: Bartolo Soriaon MD Signed: 05/15/2022 8:48 AM Workstation Name: [id number] Transcribed By: Dictated By: BARTOLO SORIANO MD Electronically Authenticated By: BARTOLO SORIANO MD Signed Date/Time: 05/15/22847 DD/ 3 TD/TT: - Medical Decision Making This is a 41-year-old female that presents with head contusion Patient is stable and was examined by me. Patient is neurologically stable. There is no stiff neck or neck pain. Vital signs are stable. Patient is afebrile. Patient received [place] which the patient stated that headache has subsided and resolved. Patient was instructed not to operate any machinery after discharged due to drowsiness of [place]. Patient stated that a family member will drive patient home. Patient is notified of the CT results with no questions noted by the patient. Patient was referred to Follow-up with a primary care/neurologist doctor in 3-5 days or if symptoms worsen and continue return to emergency room as soon as possible. At time of discharge, the patient does not seem toxic or ill in appearance. No acute signs of distress noted. Patient agrees to discharge treatment plan of care. No further questions noted by the patient. - NEXUS Criteria Focal neurological deficit present: No Midline spinal tenderness present: No Altered level of consciousness: No Intoxication present: No Distracting injury present: No NEXUS results: C-Spine can be cleared clinically by these results. Imaging is not required. Critical care attestation.: If time is entered above; I have spent that time in minutes in the direct care of this critically ill patient, excluding procedure time. ED Disposition Clinical Impression: Head contusion Qualifiers: Encounter type: initial encounter Contusion of head detail: scalp Qualified Code(s): S00.03XA - Contusion of scalp, initial encounter Disposition: HOME / SELF CARE / HOMELESS Is pt being admited?: No Does the pt Need Aspirin: No Condition: Stable Additional Instructions: Follow-up with a primary care doctor in 3-5 days or if symptoms worsen and continue return to emergency room as soon as possible. Prescriptions: Butalb/Acetaminophen/Caffeine [Fioricet 50-300-40 mg CAP] 1 cap PO Q8HR PRN #12 cap PRN Reason: Headache Referrals: JOURDAN BOSS MD [Primary Care Provider] - 3-5 Days PRIMARY CAREMD [Referring] - 3-5 Days Time of Disposition: 09:29
[2022-05-15 10:38] VITALS: BP 161/74
== END 2022-05-15 10:37 | disposition home or self-care (01) ==
LOC: ED 21:21
DX: S00.93XA Contusion of unspecified part of head, initial encounter (principal); I10 Essential (primary) hypertension; Z91.040 Latex allergy status; W19.XXXA Unspecified fall, initial encounter; Y93.89 Activity, other specified; Y92.89 Other specified places as the place of occurrence of the external cause; Y99.8 Other external cause status
CPT/HCPCS: 70450; 72125; 99283